=== PATIENT | female | born 1935 | race Two or more races ===

== ENCOUNTER 2018-06-04 10:02 | Outpatient (CLI) | payer MEDICARE | END 2018-06-04 23:59 | disposition home or self-care (01) | LOC: WOU 10:02 | PROVIDERS: ATTEND Specialist | DX: I87.312 Chronic venous hypertension (idiopathic) with ulcer of left lower extremity (principal); L97.328 Non-pressure chronic ulcer of left ankle with other specified severity; I10 Essential (primary) hypertension; Z88.6 Allergy status to analgesic agent; Z88.0 Allergy status to penicillin | CPT/HCPCS: 87070-TC; 87186-TC; A6209; A6402; G0463; Z7610 ==

== ENCOUNTER 2018-06-06 14:18 | Outpatient (CLI) | payer MEDICARE | END 2018-06-06 23:59 | disposition home or self-care (01) | LOC: WOU 14:18 | PROVIDERS: ATTEND Specialist | DX: L98.499 Non-pressure chronic ulcer of skin of other sites with unspecified severity (principal); I70.249 Atherosclerosis of native arteries of left leg with ulceration of unspecified site; L97.929 Non-pressure chronic ulcer of unspecified part of left lower leg with unspecified severity; I70.239 Atherosclerosis of native arteries of right leg with ulceration of unspecified site; L97.919 Non-pressure chronic ulcer of unspecified part of right lower leg with unspecified severity | CPT/HCPCS: 93925; 93970; Z7610 ==

== ENCOUNTER 2018-06-11 08:00 | Outpatient (CLI) | payer MEDICARE | END 2018-06-11 23:59 | disposition home or self-care (01) | LOC: WOU 08:00 | PROVIDERS: ATTEND Specialist | DX: I87.312 Chronic venous hypertension (idiopathic) with ulcer of left lower extremity (principal); L97.822 Non-pressure chronic ulcer of other part of left lower leg with fat layer exposed; I10 Essential (primary) hypertension; G89.29 Other chronic pain; M54.9 Dorsalgia, unspecified; Z79.899 Other long term (current) drug therapy | CPT/HCPCS: 97597; A6209; A6402; Z7610 ==

== ENCOUNTER 2018-06-18 08:13 | Outpatient (CLI) | payer MEDICARE | END 2018-06-18 23:59 | disposition home or self-care (01) | LOC: WOU 08:13 | PROVIDERS: ATTEND Specialist | DX: I87.312 Chronic venous hypertension (idiopathic) with ulcer of left lower extremity (principal); L97.822 Non-pressure chronic ulcer of other part of left lower leg with fat layer exposed; I10 Essential (primary) hypertension; Z88.6 Allergy status to analgesic agent; Z88.0 Allergy status to penicillin | CPT/HCPCS: 11042; A6209; A6402; Z7610 ==

== ENCOUNTER 2018-06-25 13:40 | Outpatient (CLI) | payer MEDICARE | END 2018-06-25 23:59 | disposition home health service (06) | LOC: WOU 13:40 | PROVIDERS: ATTEND Specialist | DX: I87.312 Chronic venous hypertension (idiopathic) with ulcer of left lower extremity (principal); L97.822 Non-pressure chronic ulcer of other part of left lower leg with fat layer exposed; Z88.6 Allergy status to analgesic agent; Z88.0 Allergy status to penicillin; I10 Essential (primary) hypertension | CPT/HCPCS: 11042; 11045; A6253; A6402; Z7610 ==

== ENCOUNTER 2018-07-02 08:30 | Outpatient (CLI) | payer MEDICARE | END 2018-07-02 23:59 | disposition home health service (06) | LOC: WOU 08:30 | PROVIDERS: ATTEND Specialist | DX: I87.312 Chronic venous hypertension (idiopathic) with ulcer of left lower extremity (principal); L97.822 Non-pressure chronic ulcer of other part of left lower leg with fat layer exposed; I70.212 Atherosclerosis of native arteries of extremities with intermittent claudication, left leg; I10 Essential (primary) hypertension | CPT/HCPCS: A6402; G0463; Z7610 ==

== ENCOUNTER 2018-07-08 12:35 | Outpatient (CLI) | payer MEDICARE | END 2018-07-08 23:59 | disposition home health service (06) | LOC: VASLAB 12:35 | PROVIDERS: ATTEND Surgery Vascular Surgery | DX: I87.2 Venous insufficiency (chronic) (peripheral) (principal); L97.821 Non-pressure chronic ulcer of other part of left lower leg limited to breakdown of skin; I70.248 Atherosclerosis of native arteries of left leg with ulceration of other part of lower leg | CPT/HCPCS: A6207; A6402; A6452; G0463; Z7610 ==

== ENCOUNTER 2018-09-03 08:35 | Outpatient (CLI) | payer MEDICARE ==
[~2018-09-03 08:35] MED LIST: KETOROLAC TROMETHAMINE 15 MG/ML VIAL ONE
== END 2018-09-03 23:59 | disposition home health service (06) ==
LOC: WOU 08:35
PROVIDERS: ATTEND Specialist
DX: I87.312 Chronic venous hypertension (idiopathic) with ulcer of left lower extremity (principal); L97.521 Non-pressure chronic ulcer of other part of left foot limited to breakdown of skin; S80.812A Abrasion, left lower leg, initial encounter; X58.XXXA Exposure to other specified factors, initial encounter; Y92.89 Other specified places as the place of occurrence of the external cause; Z88.0 Allergy status to penicillin; R23.8 Other skin changes; I10 Essential (primary) hypertension; R60.0 Localized edema; I87.2 Venous insufficiency (chronic) (peripheral)
CPT/HCPCS: 97597; A6402; Z7610; 11042; J1885

== ENCOUNTER 2018-09-10 08:24 | Outpatient (CLI) | payer MEDICARE | END 2018-09-10 23:59 | disposition home health service (06) | LOC: WOU 08:24 | PROVIDERS: ATTEND Specialist | DX: I87.312 Chronic venous hypertension (idiopathic) with ulcer of left lower extremity (principal); L97.822 Non-pressure chronic ulcer of other part of left lower leg with fat layer exposed; I10 Essential (primary) hypertension; I87.2 Venous insufficiency (chronic) (peripheral); Z88.6 Allergy status to analgesic agent; Z88.0 Allergy status to penicillin | CPT/HCPCS: 11042; A6402; Z7610 ==

== ENCOUNTER 2018-09-24 11:45 | Outpatient (CLI) | payer MEDICARE | END 2018-09-24 23:59 | disposition home health service (06) | LOC: WOU 11:45 | PROVIDERS: ATTEND Specialist | DX: I87.312 Chronic venous hypertension (idiopathic) with ulcer of left lower extremity (principal); L97.922 Non-pressure chronic ulcer of unspecified part of left lower leg with fat layer exposed; R60.0 Localized edema; I10 Essential (primary) hypertension; I87.2 Venous insufficiency (chronic) (peripheral); Z88.6 Allergy status to analgesic agent; Z88.0 Allergy status to penicillin | CPT/HCPCS: 29580-LT; A6402 ==

== ENCOUNTER 2018-10-01 11:53 | Outpatient (CLI) | payer MEDICARE | END 2018-10-01 23:59 | disposition home health service (06) | LOC: WOU 11:53 | PROVIDERS: ATTEND Specialist | DX: I87.312 Chronic venous hypertension (idiopathic) with ulcer of left lower extremity (principal); L97.322 Non-pressure chronic ulcer of left ankle with fat layer exposed; I87.2 Venous insufficiency (chronic) (peripheral); I10 Essential (primary) hypertension; Z88.0 Allergy status to penicillin | CPT/HCPCS: 11042; A6402; Z7610 ==

== ENCOUNTER 2018-10-08 09:08 | Outpatient (CLI) | payer MEDICARE | END 2018-10-08 23:59 | disposition home health service (06) | LOC: WOU 09:08 | PROVIDERS: ATTEND Specialist | DX: I87.312 Chronic venous hypertension (idiopathic) with ulcer of left lower extremity (principal); L97.322 Non-pressure chronic ulcer of left ankle with fat layer exposed; I87.2 Venous insufficiency (chronic) (peripheral); I10 Essential (primary) hypertension | CPT/HCPCS: 11042; A6402 ==

== ENCOUNTER 2018-10-15 09:18 | Outpatient (CLI) | payer MEDICARE | END 2018-10-15 23:59 | disposition home or self-care (01) | LOC: WOU 09:18 | PROVIDERS: ATTEND Specialist | DX: I87.312 Chronic venous hypertension (idiopathic) with ulcer of left lower extremity (principal); L97.322 Non-pressure chronic ulcer of left ankle with fat layer exposed; I87.2 Venous insufficiency (chronic) (peripheral); I11.0 Hypertensive heart disease with heart failure | CPT/HCPCS: A6402 ==

== ENCOUNTER 2018-10-22 09:21 | Outpatient (CLI) | payer MEDICARE | END 2018-10-22 23:59 | disposition home or self-care (01) | LOC: WOU 09:21 | PROVIDERS: ATTEND Specialist | DX: I87.312 Chronic venous hypertension (idiopathic) with ulcer of left lower extremity (principal); L97.821 Non-pressure chronic ulcer of other part of left lower leg limited to breakdown of skin; I87.2 Venous insufficiency (chronic) (peripheral); I10 Essential (primary) hypertension | CPT/HCPCS: 97597; A6402; Z7610 ==

== ENCOUNTER 2018-10-29 09:15 | Outpatient (CLI) | payer MEDICARE | END 2018-10-29 23:59 | disposition home or self-care (01) | LOC: WOU 09:15 | PROVIDERS: ATTEND Specialist | DX: I87.312 Chronic venous hypertension (idiopathic) with ulcer of left lower extremity (principal); L97.822 Non-pressure chronic ulcer of other part of left lower leg with fat layer exposed; I10 Essential (primary) hypertension; I87.2 Venous insufficiency (chronic) (peripheral) | CPT/HCPCS: 11042; A6402 ==

== ENCOUNTER 2018-11-05 10:40 | Outpatient (CLI) | payer MEDICARE | END 2018-11-05 23:59 | disposition home health service (06) | LOC: WOU 10:40 | PROVIDERS: ATTEND Specialist | DX: I87.312 Chronic venous hypertension (idiopathic) with ulcer of left lower extremity (principal); L97.822 Non-pressure chronic ulcer of other part of left lower leg with fat layer exposed; I87.2 Venous insufficiency (chronic) (peripheral); I10 Essential (primary) hypertension; Z88.6 Allergy status to analgesic agent; Z88.0 Allergy status to penicillin | CPT/HCPCS: 11042; A6402 ==

== ENCOUNTER 2018-11-12 11:20 | Outpatient (CLI) | payer MEDICARE | END 2018-11-12 23:59 | disposition home health service (06) | LOC: WOU 11:20 | PROVIDERS: ATTEND Specialist | DX: I87.312 Chronic venous hypertension (idiopathic) with ulcer of left lower extremity (principal); I10 Essential (primary) hypertension; I87.2 Venous insufficiency (chronic) (peripheral); L97.822 Non-pressure chronic ulcer of other part of left lower leg with fat layer exposed; S80.822A Blister (nonthermal), left lower leg, initial encounter; X58.XXXA Exposure to other specified factors, initial encounter; Y92.89 Other specified places as the place of occurrence of the external cause | CPT/HCPCS: 11042; A6402; A6452 ==

== ENCOUNTER 2018-11-19 10:20 | Outpatient (CLI) | payer MEDICARE | END 2018-11-19 23:59 | disposition home health service (06) | LOC: WOU 10:20 | PROVIDERS: ATTEND Specialist | DX: L97.322 Non-pressure chronic ulcer of left ankle with fat layer exposed (principal); I87.312 Chronic venous hypertension (idiopathic) with ulcer of left lower extremity; I10 Essential (primary) hypertension; I87.2 Venous insufficiency (chronic) (peripheral) | CPT/HCPCS: A6207; A6209; A6402; A6452; G0463 ==

== ENCOUNTER 2018-11-26 10:20 | Outpatient (CLI) | payer MEDICARE | END 2018-11-26 23:59 | disposition home health service (06) | LOC: WOU 10:20 | PROVIDERS: ATTEND Specialist | DX: I87.312 Chronic venous hypertension (idiopathic) with ulcer of left lower extremity (principal); L97.822 Non-pressure chronic ulcer of other part of left lower leg with fat layer exposed; I10 Essential (primary) hypertension; I87.2 Venous insufficiency (chronic) (peripheral) | CPT/HCPCS: A6402; A6452; G0463 ==

== ENCOUNTER 2018-12-03 10:08 | Outpatient (CLI) | payer MEDICARE | END 2018-12-03 23:59 | disposition home health service (06) | LOC: WOU 10:08 | PROVIDERS: ATTEND Specialist | DX: I87.312 Chronic venous hypertension (idiopathic) with ulcer of left lower extremity (principal); L97.322 Non-pressure chronic ulcer of left ankle with fat layer exposed; I10 Essential (primary) hypertension; Z88.6 Allergy status to analgesic agent; Z88.0 Allergy status to penicillin | CPT/HCPCS: 11042; A6402; A6452 ==

== ENCOUNTER 2018-12-10 09:40 | Outpatient (CLI) | payer MEDICARE | END 2018-12-10 23:59 | disposition home health service (06) | LOC: WOU 09:40 | PROVIDERS: ATTEND Specialist | DX: I87.312 Chronic venous hypertension (idiopathic) with ulcer of left lower extremity (principal); L97.322 Non-pressure chronic ulcer of left ankle with fat layer exposed; I10 Essential (primary) hypertension; I87.2 Venous insufficiency (chronic) (peripheral); G89.29 Other chronic pain; M54.9 Dorsalgia, unspecified; Z88.0 Allergy status to penicillin; Z79.899 Other long term (current) drug therapy | CPT/HCPCS: 11042; 87070; 87186 ×2; A6207; A6402; A6452 ==

== ENCOUNTER 2018-12-17 10:15 | Outpatient (CLI) | payer MEDICARE | END 2018-12-17 23:59 | disposition home health service (06) | LOC: WOU 10:15 | PROVIDERS: ATTEND Specialist | DX: I87.312 Chronic venous hypertension (idiopathic) with ulcer of left lower extremity (principal); L97.322 Non-pressure chronic ulcer of left ankle with fat layer exposed; I10 Essential (primary) hypertension; G89.29 Other chronic pain; M54.9 Dorsalgia, unspecified; Z88.6 Allergy status to analgesic agent; Z88.0 Allergy status to penicillin | CPT/HCPCS: 11042; A6402; A6452 ==

== ENCOUNTER 2018-12-24 10:00 | Outpatient (CLI) | payer MEDICARE | END 2018-12-24 23:59 | disposition home or self-care (01) | LOC: WOU 10:00 | PROVIDERS: ATTEND Specialist | DX: I87.312 Chronic venous hypertension (idiopathic) with ulcer of left lower extremity (principal); L97.322 Non-pressure chronic ulcer of left ankle with fat layer exposed; I10 Essential (primary) hypertension; I87.2 Venous insufficiency (chronic) (peripheral); Z88.6 Allergy status to analgesic agent; Z88.0 Allergy status to penicillin | CPT/HCPCS: A6207; A6402; A6452; G0463 ==

== ENCOUNTER 2018-12-31 10:10 | Outpatient (CLI) | payer MEDICARE | END 2018-12-31 23:59 | disposition home health service (06) | LOC: WOU 10:10 | PROVIDERS: ATTEND Specialist | DX: I87.312 Chronic venous hypertension (idiopathic) with ulcer of left lower extremity (principal); L97.328 Non-pressure chronic ulcer of left ankle with other specified severity; I10 Essential (primary) hypertension; S80.11XA Contusion of right lower leg, initial encounter; W19.XXXA Unspecified fall, initial encounter; Y92.89 Other specified places as the place of occurrence of the external cause | CPT/HCPCS: 97597; A6207; A6452 ==

== ENCOUNTER 2019-01-07 11:10 | Outpatient (CLI) | payer MEDICARE | END 2019-01-07 23:59 | disposition home health service (06) | LOC: WOU 11:10 | PROVIDERS: ATTEND Specialist | DX: I87.312 Chronic venous hypertension (idiopathic) with ulcer of left lower extremity (principal); L97.321 Non-pressure chronic ulcer of left ankle limited to breakdown of skin; Z88.0 Allergy status to penicillin; I10 Essential (primary) hypertension; T79.2XXD Traumatic secondary and recurrent hemorrhage and seroma, subsequent encounter; X58.XXXD Exposure to other specified factors, subsequent encounter | CPT/HCPCS: 11042; 87070; A6402; A6452; 87186-TC ==

== ENCOUNTER 2019-01-14 11:05 | Outpatient (CLI) | payer MEDICARE | END 2019-01-14 23:59 | disposition home health service (06) | LOC: WOU 11:05 | PROVIDERS: ATTEND Specialist | DX: I87.312 Chronic venous hypertension (idiopathic) with ulcer of left lower extremity (principal); L97.328 Non-pressure chronic ulcer of left ankle with other specified severity; I10 Essential (primary) hypertension; T79.2XXA Traumatic secondary and recurrent hemorrhage and seroma, initial encounter; I87.2 Venous insufficiency (chronic) (peripheral) | CPT/HCPCS: 15110; A6209; A6402; A6452 ==

== ENCOUNTER 2019-01-21 11:05 | Outpatient (CLI) | payer MEDICARE | END 2019-01-21 23:59 | disposition home health service (06) | LOC: WOU 11:05 | PROVIDERS: ATTEND Specialist | DX: I87.312 Chronic venous hypertension (idiopathic) with ulcer of left lower extremity (principal); L97.821 Non-pressure chronic ulcer of other part of left lower leg limited to breakdown of skin; T79.2XXA Traumatic secondary and recurrent hemorrhage and seroma, initial encounter; I10 Essential (primary) hypertension | CPT/HCPCS: A6402; A6452; G0463 ==

== ENCOUNTER 2019-01-28 11:00 | Outpatient (CLI) | payer MEDICARE | END 2019-01-28 23:59 | disposition home health service (06) | LOC: WOU 11:00 | PROVIDERS: ATTEND Specialist | DX: I87.312 Chronic venous hypertension (idiopathic) with ulcer of left lower extremity (principal); L97.321 Non-pressure chronic ulcer of left ankle limited to breakdown of skin; R60.0 Localized edema; T79.2XXD Traumatic secondary and recurrent hemorrhage and seroma, subsequent encounter; Z88.6 Allergy status to analgesic agent; Z88.0 Allergy status to penicillin | CPT/HCPCS: A6209; A6402; A6452; G0463 ==

== ENCOUNTER 2019-02-04 10:30 | Outpatient (CLI) | payer MEDICARE | END 2019-02-04 23:59 | disposition home health service (06) | LOC: WOU 10:30 | PROVIDERS: ATTEND Specialist | DX: I87.312 Chronic venous hypertension (idiopathic) with ulcer of left lower extremity (principal); L97.321 Non-pressure chronic ulcer of left ankle limited to breakdown of skin; I10 Essential (primary) hypertension | CPT/HCPCS: 11042; A6209; A6402; A6452 ==

== ENCOUNTER 2019-02-06 10:48 | Outpatient (CLI) | payer MEDICARE | END 2019-02-06 23:59 | disposition home or self-care (01) | LOC: WOU 10:48 | PROVIDERS: ATTEND Podiatrist Foot & Ankle Surgery | DX: L84 Corns and callosities (principal); M79.672 Pain in left foot; I87.8 Other specified disorders of veins; R60.0 Localized edema | CPT/HCPCS: A6402; G0463 ==

== ENCOUNTER 2019-02-11 11:15 | Outpatient (CLI) | payer MEDICARE | END 2019-02-11 23:59 | disposition home health service (06) | LOC: WOU 11:15 | PROVIDERS: ATTEND Specialist | DX: I87.312 Chronic venous hypertension (idiopathic) with ulcer of left lower extremity (principal); L97.322 Non-pressure chronic ulcer of left ankle with fat layer exposed; I10 Essential (primary) hypertension; Z88.6 Allergy status to analgesic agent; Z88.0 Allergy status to penicillin | CPT/HCPCS: 15271; A6402; A6452; Q4158 ==

== ENCOUNTER 2019-02-18 10:55 | Outpatient (CLI) | payer MEDICARE | END 2019-02-18 23:59 | disposition home health service (06) | LOC: WOU 10:55 | PROVIDERS: ATTEND Specialist | DX: I87.312 Chronic venous hypertension (idiopathic) with ulcer of left lower extremity (principal); L97.822 Non-pressure chronic ulcer of other part of left lower leg with fat layer exposed; I10 Essential (primary) hypertension; I87.2 Venous insufficiency (chronic) (peripheral); Z88.6 Allergy status to analgesic agent; Z88.0 Allergy status to penicillin | CPT/HCPCS: 11042; A6402; A6452 ==

== ENCOUNTER 2019-02-25 11:15 | Outpatient (CLI) | payer MEDICARE | END 2019-02-25 23:59 | disposition home health service (06) | LOC: WOU 11:15 | PROVIDERS: ATTEND Specialist | DX: I87.312 Chronic venous hypertension (idiopathic) with ulcer of left lower extremity (principal); L97.328 Non-pressure chronic ulcer of left ankle with other specified severity; I10 Essential (primary) hypertension; R60.0 Localized edema; I87.2 Venous insufficiency (chronic) (peripheral) | CPT/HCPCS: A6402; A6452; G0463 ==

== ENCOUNTER 2019-03-04 11:15 | Outpatient (CLI) | payer MEDICARE | END 2019-03-04 23:59 | disposition home health service (06) | LOC: WOU 11:15 | PROVIDERS: ATTEND Specialist | DX: I87.312 Chronic venous hypertension (idiopathic) with ulcer of left lower extremity (principal); L97.322 Non-pressure chronic ulcer of left ankle with fat layer exposed; I10 Essential (primary) hypertension; R60.0 Localized edema; I87.2 Venous insufficiency (chronic) (peripheral); Z88.0 Allergy status to penicillin | CPT/HCPCS: 11042; 87070; 87075; A6209; A6402; A6452; 87186-TC ==

== ENCOUNTER 2019-03-10 09:57 | Outpatient (CLI) | payer MEDICARE | END 2019-03-10 23:59 | disposition home health service (06) | LOC: WOU 09:57 | PROVIDERS: ATTEND Podiatrist Foot & Ankle Surgery | DX: L60.0 Ingrowing nail (principal); L84 Corns and callosities; M20.42 Other hammer toe(s) (acquired), left foot; I87.2 Venous insufficiency (chronic) (peripheral); B35.3 Tinea pedis; R60.0 Localized edema | CPT/HCPCS: G0463 ==

== ENCOUNTER 2019-03-11 11:00 | Outpatient (CLI) | payer MEDICARE | END 2019-03-11 23:59 | disposition home health service (06) | LOC: WOU 11:00 | PROVIDERS: ATTEND Specialist | DX: I87.312 Chronic venous hypertension (idiopathic) with ulcer of left lower extremity (principal); L97.822 Non-pressure chronic ulcer of other part of left lower leg with fat layer exposed; I10 Essential (primary) hypertension; R60.0 Localized edema; I87.2 Venous insufficiency (chronic) (peripheral) | CPT/HCPCS: 11042; A6209; A6402; A6452 ==

== ENCOUNTER 2019-03-18 11:15 | Outpatient (CLI) | payer MEDICARE | END 2019-03-18 23:59 | disposition home health service (06) | LOC: WOU 11:15 | PROVIDERS: ATTEND Specialist | DX: I87.312 Chronic venous hypertension (idiopathic) with ulcer of left lower extremity (principal); L97.822 Non-pressure chronic ulcer of other part of left lower leg with fat layer exposed; I10 Essential (primary) hypertension; I87.2 Venous insufficiency (chronic) (peripheral); Z88.6 Allergy status to analgesic agent; Z88.0 Allergy status to penicillin | CPT/HCPCS: 11042; A6209; A6402; A6452 ==

== ENCOUNTER 2019-03-25 11:10 | Outpatient (CLI) | payer MEDICARE | END 2019-03-25 23:59 | disposition home health service (06) | LOC: WOU 11:10 | PROVIDERS: ATTEND Specialist | DX: I87.312 Chronic venous hypertension (idiopathic) with ulcer of left lower extremity (principal); L97.322 Non-pressure chronic ulcer of left ankle with fat layer exposed; I10 Essential (primary) hypertension; I87.2 Venous insufficiency (chronic) (peripheral) | CPT/HCPCS: 11042; A6402; A6452 ==

== ENCOUNTER 2019-04-01 11:40 | Outpatient (CLI) | payer MEDICARE | END 2019-04-01 23:59 | disposition home health service (06) | LOC: WOU 11:40 | PROVIDERS: ATTEND Specialist | DX: I87.312 Chronic venous hypertension (idiopathic) with ulcer of left lower extremity (principal); L97.922 Non-pressure chronic ulcer of unspecified part of left lower leg with fat layer exposed; I10 Essential (primary) hypertension | CPT/HCPCS: 11042; A6402; A6452 ==

== ENCOUNTER 2019-04-08 11:30 | Outpatient (CLI) | payer MEDICARE | END 2019-04-08 23:59 | disposition home health service (06) | LOC: WOU 11:30 | PROVIDERS: ATTEND Specialist | DX: I87.312 Chronic venous hypertension (idiopathic) with ulcer of left lower extremity (principal); L97.822 Non-pressure chronic ulcer of other part of left lower leg with fat layer exposed; I10 Essential (primary) hypertension; I87.2 Venous insufficiency (chronic) (peripheral); Z88.6 Allergy status to analgesic agent; Z88.0 Allergy status to penicillin | CPT/HCPCS: 11042; A6209; A6402; A6452 ==

== ENCOUNTER 2019-04-15 11:20 | Outpatient (CLI) | payer MEDICARE | END 2019-04-15 23:59 | disposition home health service (06) | LOC: WOU 11:20 | PROVIDERS: ATTEND Specialist | DX: I87.312 Chronic venous hypertension (idiopathic) with ulcer of left lower extremity (principal); I10 Essential (primary) hypertension; I87.2 Venous insufficiency (chronic) (peripheral); L97.822 Non-pressure chronic ulcer of other part of left lower leg with fat layer exposed | CPT/HCPCS: 11042; A6452 ==

== ENCOUNTER 2019-04-22 11:10 | Outpatient (CLI) | payer MEDICARE | END 2019-04-22 23:59 | disposition home health service (06) | LOC: WOU 11:10 | PROVIDERS: ATTEND Specialist | DX: I87.312 Chronic venous hypertension (idiopathic) with ulcer of left lower extremity (principal); L97.322 Non-pressure chronic ulcer of left ankle with fat layer exposed; I10 Essential (primary) hypertension; I87.2 Venous insufficiency (chronic) (peripheral); Z88.0 Allergy status to penicillin | CPT/HCPCS: 11042; A6452 ==

== ENCOUNTER 2019-04-29 11:00 | Outpatient (CLI) | payer MEDICARE | END 2019-04-29 23:59 | disposition home health service (06) | LOC: WOU 11:00 | PROVIDERS: ATTEND Specialist | DX: I87.312 Chronic venous hypertension (idiopathic) with ulcer of left lower extremity (principal); L97.822 Non-pressure chronic ulcer of other part of left lower leg with fat layer exposed; I10 Essential (primary) hypertension; I87.2 Venous insufficiency (chronic) (peripheral) | CPT/HCPCS: 11042; A6209; A6452 ==

== ENCOUNTER 2019-05-05 10:30 | Outpatient (CLI) | payer MEDICARE | END 2019-05-05 23:59 | disposition home or self-care (01) | LOC: WOU 10:30 | PROVIDERS: ATTEND Podiatrist Foot & Ankle Surgery | DX: L84 Corns and callosities (principal); I87.2 Venous insufficiency (chronic) (peripheral); R60.0 Localized edema; M79.672 Pain in left foot | CPT/HCPCS: G0463 ==

== ENCOUNTER 2019-05-06 11:00 | Outpatient (CLI) | payer MEDICARE | END 2019-05-06 23:59 | disposition home health service (06) | DX: I87.312 Chronic venous hypertension (idiopathic) with ulcer of left lower extremity (principal); L97.322 Non-pressure chronic ulcer of left ankle with fat layer exposed; I10 Essential (primary) hypertension; Z88.0 Allergy status to penicillin; M17.11 Unilateral primary osteoarthritis, right knee; M85.861 Other specified disorders of bone density and structure, right lower leg | CPT/HCPCS: 11042; 73564; A6209 ==

== ENCOUNTER 2019-05-07 09:00 | Outpatient (CLI) | payer MEDICARE | END 2019-05-07 23:59 | disposition home or self-care (01) | LOC: WOU 09:00 | PROVIDERS: ATTEND Specialist | DX: M79.89 Other specified soft tissue disorders (principal); I83.893 Varicose veins of bilateral lower extremities with other complications; Z98.890 Other specified postprocedural states | CPT/HCPCS: 93970; A6209; A6452 ==

== ENCOUNTER 2019-05-12 13:30 | Outpatient (CLI) | payer MEDICARE | END 2019-05-12 23:59 | disposition home health service (06) | LOC: VASLAB 13:30 | PROVIDERS: ATTEND Surgery Vascular Surgery | DX: I87.312 Chronic venous hypertension (idiopathic) with ulcer of left lower extremity (principal); L97.822 Non-pressure chronic ulcer of other part of left lower leg with fat layer exposed; I87.2 Venous insufficiency (chronic) (peripheral); R60.0 Localized edema; I10 Essential (primary) hypertension | CPT/HCPCS: G0463 ==

== ENCOUNTER 2019-05-13 11:10 | Outpatient (CLI) | payer MEDICARE | END 2019-05-13 23:59 | disposition home or self-care (01) | LOC: WOU 11:10 | PROVIDERS: ATTEND Specialist | DX: I87.312 Chronic venous hypertension (idiopathic) with ulcer of left lower extremity (principal); L97.822 Non-pressure chronic ulcer of other part of left lower leg with fat layer exposed; I10 Essential (primary) hypertension; M17.11 Unilateral primary osteoarthritis, right knee | CPT/HCPCS: G0463 ==

== ENCOUNTER 2019-05-27 10:50 | Outpatient (CLI) | payer MEDICARE | END 2019-05-27 23:59 | disposition home health service (06) | LOC: WOU 10:50 | PROVIDERS: ATTEND Specialist | DX: I87.312 Chronic venous hypertension (idiopathic) with ulcer of left lower extremity (principal); L97.328 Non-pressure chronic ulcer of left ankle with other specified severity; I87.2 Venous insufficiency (chronic) (peripheral); R60.0 Localized edema; I10 Essential (primary) hypertension | CPT/HCPCS: A6452; G0463 ==

== ENCOUNTER 2019-06-02 11:00 | Outpatient (CLI) | payer MEDICARE | END 2019-06-02 23:59 | disposition home health service (06) | LOC: WOU 11:00 | PROVIDERS: ATTEND Podiatrist Foot & Ankle Surgery | DX: M20.40 Other hammer toe(s) (acquired), unspecified foot (principal); L84 Corns and callosities; I87.2 Venous insufficiency (chronic) (peripheral); I10 Essential (primary) hypertension; R60.0 Localized edema | CPT/HCPCS: G0463 ==

== ENCOUNTER 2019-06-04 09:06 | Outpatient (CLI) | payer MEDICARE | END 2019-06-04 23:59 | disposition home or self-care (01) | LOC: US 09:06 | PROVIDERS: ATTEND Surgery Vascular Surgery | DX: K82.8 Other specified diseases of gallbladder (principal); R14.0 Abdominal distension (gaseous); R10.2 Pelvic and perineal pain; R22.41 Localized swelling, mass and lump, right lower limb | CPT/HCPCS: 76700-TC; 76856-TC ==

== ENCOUNTER 2019-06-09 14:20 | Outpatient (CLI) | payer MEDICARE | END 2019-06-09 23:59 | disposition home health service (06) | LOC: VASLAB 14:20 | PROVIDERS: ATTEND Surgery Vascular Surgery | DX: I87.312 Chronic venous hypertension (idiopathic) with ulcer of left lower extremity (principal); L97.822 Non-pressure chronic ulcer of other part of left lower leg with fat layer exposed; I87.2 Venous insufficiency (chronic) (peripheral); R60.0 Localized edema; I10 Essential (primary) hypertension; L84 Corns and callosities | CPT/HCPCS: G0463 ==

== ENCOUNTER 2019-06-10 10:50 | Outpatient (CLI) | payer MEDICARE | END 2019-06-10 23:59 | disposition home health service (06) | LOC: WOU 10:50 | PROVIDERS: ATTEND Specialist | DX: I87.312 Chronic venous hypertension (idiopathic) with ulcer of left lower extremity (principal); L97.822 Non-pressure chronic ulcer of other part of left lower leg with fat layer exposed; I10 Essential (primary) hypertension; I87.2 Venous insufficiency (chronic) (peripheral) | CPT/HCPCS: 11042; A6452 ==

== ENCOUNTER 2019-06-17 10:55 | Outpatient (CLI) | payer MEDICARE | END 2019-06-17 23:59 | disposition home health service (06) | LOC: WOU 10:55 | PROVIDERS: ATTEND Specialist | DX: I87.312 Chronic venous hypertension (idiopathic) with ulcer of left lower extremity (principal); L97.328 Non-pressure chronic ulcer of left ankle with other specified severity; L84 Corns and callosities; I10 Essential (primary) hypertension; R60.0 Localized edema; Z88.6 Allergy status to analgesic agent; Z88.0 Allergy status to penicillin | CPT/HCPCS: A6452; G0463 ==

== ENCOUNTER 2019-07-01 10:43 | Outpatient (CLI) | payer MEDICARE | END 2019-07-01 23:59 | disposition home health service (06) | LOC: WOU 10:43 | PROVIDERS: ATTEND Specialist | DX: I87.302 Chronic venous hypertension (idiopathic) without complications of left lower extremity (principal); I10 Essential (primary) hypertension; L84 Corns and callosities | CPT/HCPCS: G0463 ==

== ENCOUNTER 2020-02-24 11:15 | Outpatient (CLI) | payer MEDICARE ==
[2020-02-24 13:35] LABS: BASOPHILS # (AUTO) 0.1 /CMM (0.0-0.2); EOSINOPHILS % (AUTO) 1.3 % (0.0-6.0); HEMATOCRIT 38 % (33-45); HEMOGLOBIN 12.6 g/dL (11.5-14.8); LYMPHOCYTES # (AUTO) 0.9 /CMM (0.8-4.8); LYMPHOCYTES % (AUTO) 12.1 % (20.0-44.0); MEAN CORPUSCULAR HGB CONC 34 g/dl (31.0-36.0); MEAN CORPUSCULAR VOLUME 93 fL (82-100); MONOCYTES # (AUTO) 0.4 /CMM (0.1-1.30); MONOCYTES % (AUTO) 5.9 % (2.0-12.0); NEUTROPHILS # (AUTO) 5.8 /CMM (1.8-8.9); NEUTROPHILS % (AUTO) 78.7 % (43.0-81.0); PLATELET COUNT (AUTO) 259 /CMM (150-450); RED BLOOD CELL COUNT(AUTO) 4.06 MIL/uL (4.0-5.2); WHITE BLOOD COUNT (AUTO) 7.4 K/uL (4.3-11.0)
[2020-02-24 13:51] LABS: ALBUMIN 3.4 g/dL (3.4-5.0); BILIRUBIN,TOTAL 0.8 mg/dL (0.2-1.0); CALCIUM, SERUM 8.9 mg/dL (8.5-10.1); CREATININE 0.8 mg/dL (0.6-1.3); TOTAL PROTEIN, SERUM 7.2 g/dL (6.4-8.2)
[2020-02-24 13:55] LABS: PREALBUMIN 20.4 MG/DL (18.0-35.7); THYROID STIMULATING HORMONE 0.661 uIU/mL (0.358-3.74)
== END 2020-02-24 23:59 | disposition home health service (06) ==
LOC: WOU 11:15
PROVIDERS: ATTEND Specialist
DX: I87.332 Chronic venous hypertension (idiopathic) with ulcer and inflammation of left lower extremity (principal); L97.822 Non-pressure chronic ulcer of other part of left lower leg with fat layer exposed; I10 Essential (primary) hypertension; Z79.02 Long term (current) use of antithrombotics/antiplatelets
CPT/HCPCS: 36415; 80053; 83036; 84134; 84443; 85025; 85652; A6209; A6452; G0463

== ENCOUNTER 2020-03-02 11:20 | Outpatient (CLI) | payer MEDICARE | END 2020-03-02 23:59 | disposition home health service (06) | LOC: WOU 11:20 | PROVIDERS: ATTEND Specialist | DX: I87.332 Chronic venous hypertension (idiopathic) with ulcer and inflammation of left lower extremity (principal); L97.822 Non-pressure chronic ulcer of other part of left lower leg with fat layer exposed; I10 Essential (primary) hypertension; Z79.02 Long term (current) use of antithrombotics/antiplatelets | CPT/HCPCS: A6209; A6452; G0463 ==

== ENCOUNTER 2020-03-09 11:20 | Outpatient (CLI) | payer MEDICARE | END 2020-03-09 23:59 | disposition home health service (06) | LOC: WOU 11:20 | PROVIDERS: ATTEND Specialist | DX: I87.332 Chronic venous hypertension (idiopathic) with ulcer and inflammation of left lower extremity (principal); L97.822 Non-pressure chronic ulcer of other part of left lower leg with fat layer exposed; I10 Essential (primary) hypertension; Z79.02 Long term (current) use of antithrombotics/antiplatelets | CPT/HCPCS: A6452; G0463; A6209 ==

== ENCOUNTER 2020-03-16 11:15 | Outpatient (CLI) | payer MEDICARE | END 2020-03-16 23:59 | disposition home health service (06) | LOC: WOU 11:15 | PROVIDERS: ATTEND Specialist | DX: I87.332 Chronic venous hypertension (idiopathic) with ulcer and inflammation of left lower extremity (principal); L97.828 Non-pressure chronic ulcer of other part of left lower leg with other specified severity; S80.822A Blister (nonthermal), left lower leg, initial encounter; X58.XXXA Exposure to other specified factors, initial encounter; Y92.89 Other specified places as the place of occurrence of the external cause; I10 Essential (primary) hypertension | CPT/HCPCS: 97597; A6209; A6452 ==

== ENCOUNTER 2020-03-23 11:20 | Outpatient (CLI) | payer MEDICARE | END 2020-03-23 23:59 | disposition home health service (06) | LOC: WOU 11:20 | PROVIDERS: ATTEND Specialist | DX: I87.332 Chronic venous hypertension (idiopathic) with ulcer and inflammation of left lower extremity (principal); L97.828 Non-pressure chronic ulcer of other part of left lower leg with other specified severity; S80.822D Blister (nonthermal), left lower leg, subsequent encounter; X58.XXXD Exposure to other specified factors, subsequent encounter; I10 Essential (primary) hypertension; Z79.02 Long term (current) use of antithrombotics/antiplatelets | CPT/HCPCS: A6209; A6452; G0463 ==

== ENCOUNTER 2020-03-29 10:50 | Outpatient (CLI) | payer MEDICARE | END 2020-03-29 23:59 | disposition home health service (06) | LOC: WOU 10:50 | PROVIDERS: ATTEND Podiatrist Foot & Ankle Surgery | DX: L60.0 Ingrowing nail (principal); L84 Corns and callosities; M79.675 Pain in left toe(s); M79.674 Pain in right toe(s); M20.42 Other hammer toe(s) (acquired), left foot; M20.41 Other hammer toe(s) (acquired), right foot; Z79.02 Long term (current) use of antithrombotics/antiplatelets | CPT/HCPCS: G0463 ==

== ENCOUNTER 2020-03-30 10:55 | Outpatient (CLI) | payer MEDICARE | END 2020-03-30 23:59 | disposition home health service (06) | LOC: WOU 10:55 | PROVIDERS: ATTEND Specialist | DX: I87.332 Chronic venous hypertension (idiopathic) with ulcer and inflammation of left lower extremity (principal); L97.828 Non-pressure chronic ulcer of other part of left lower leg with other specified severity; L84 Corns and callosities; L60.0 Ingrowing nail; M20.42 Other hammer toe(s) (acquired), left foot; M20.41 Other hammer toe(s) (acquired), right foot; I10 Essential (primary) hypertension; M79.675 Pain in left toe(s); M79.674 Pain in right toe(s); Z79.02 Long term (current) use of antithrombotics/antiplatelets | CPT/HCPCS: A6209; A6452; G0463 ==

== ENCOUNTER 2020-04-06 10:53 | Outpatient (CLI) | payer MEDICARE | END 2020-04-06 23:59 | disposition home health service (06) | LOC: WOU 10:53 | PROVIDERS: ATTEND Specialist | DX: I87.332 Chronic venous hypertension (idiopathic) with ulcer and inflammation of left lower extremity (principal); L97.828 Non-pressure chronic ulcer of other part of left lower leg with other specified severity; L84 Corns and callosities; L60.0 Ingrowing nail; M20.42 Other hammer toe(s) (acquired), left foot; M20.41 Other hammer toe(s) (acquired), right foot; M79.675 Pain in left toe(s); M79.674 Pain in right toe(s); I10 Essential (primary) hypertension; Z79.02 Long term (current) use of antithrombotics/antiplatelets | CPT/HCPCS: 11042; A6452 ==

== ENCOUNTER 2020-04-13 11:00 | Outpatient (CLI) | payer MEDICARE | END 2020-04-13 23:59 | disposition home health service (06) | LOC: WOU 11:00 | PROVIDERS: ATTEND Specialist | DX: I87.332 Chronic venous hypertension (idiopathic) with ulcer and inflammation of left lower extremity (principal); L97.822 Non-pressure chronic ulcer of other part of left lower leg with fat layer exposed; L84 Corns and callosities; M79.675 Pain in left toe(s); M79.674 Pain in right toe(s); L60.0 Ingrowing nail; M20.42 Other hammer toe(s) (acquired), left foot; M20.41 Other hammer toe(s) (acquired), right foot; I10 Essential (primary) hypertension | CPT/HCPCS: 11042; A6452 ==

== ENCOUNTER 2020-04-20 11:25 | Outpatient (CLI) | payer MEDICARE | END 2020-04-20 23:59 | disposition home health service (06) | LOC: WOU 11:25 | PROVIDERS: ATTEND Specialist | DX: I87.332 Chronic venous hypertension (idiopathic) with ulcer and inflammation of left lower extremity (principal); L97.822 Non-pressure chronic ulcer of other part of left lower leg with fat layer exposed; L84 Corns and callosities; L60.0 Ingrowing nail; M20.42 Other hammer toe(s) (acquired), left foot; M20.41 Other hammer toe(s) (acquired), right foot; M79.675 Pain in left toe(s); M79.674 Pain in right toe(s); I10 Essential (primary) hypertension | CPT/HCPCS: 11042; A6452 ==

== ENCOUNTER 2020-04-27 11:20 | Outpatient (CLI) | payer MEDICARE ==
[2020-04-27] MEDS ORDERED: CADEXOMER IODINE UD 5 GM TUBE ONE (12:20)
[2020-04-27] MEDS ORDERED: LIDOCAINE SOLN 4% 50 ML BOTTLE ONE (12:20)
[2020-04-27] MEDS ORDERED: UREA 10% -AHA 4% CREAM 57 GM TUBE ONE (12:23)
== END 2020-04-27 23:59 | disposition home health service (06) ==
LOC: WOU 11:20
PROVIDERS: ATTEND Specialist
DX: I87.332 Chronic venous hypertension (idiopathic) with ulcer and inflammation of left lower extremity (principal); L97.822 Non-pressure chronic ulcer of other part of left lower leg with fat layer exposed; Q82.0 Hereditary lymphedema; L84 Corns and callosities; M20.42 Other hammer toe(s) (acquired), left foot; M20.41 Other hammer toe(s) (acquired), right foot; L60.0 Ingrowing nail; I10 Essential (primary) hypertension; M79.675 Pain in left toe(s); M79.674 Pain in right toe(s); Z79.02 Long term (current) use of antithrombotics/antiplatelets
CPT/HCPCS: 11042; A6452

== ENCOUNTER 2020-05-04 11:25 | Outpatient (CLI) | payer MEDICARE ==
[2020-05-04] MEDS ORDERED: UREA 10% -AHA 4% CREAM 57 GM TUBE ONE (11:58)
[2020-05-04] MEDS ORDERED: CADEXOMER IODINE UD 5 GM TUBE ONE (11:58)
== END 2020-05-04 23:59 | disposition home health service (06) ==
LOC: WOU 11:25
PROVIDERS: ATTEND Specialist
DX: I87.332 Chronic venous hypertension (idiopathic) with ulcer and inflammation of left lower extremity (principal); L97.822 Non-pressure chronic ulcer of other part of left lower leg with fat layer exposed; L84 Corns and callosities; L60.0 Ingrowing nail; I10 Essential (primary) hypertension; M20.42 Other hammer toe(s) (acquired), left foot; M20.41 Other hammer toe(s) (acquired), right foot; M79.675 Pain in left toe(s); M79.674 Pain in right toe(s); Z79.02 Long term (current) use of antithrombotics/antiplatelets
CPT/HCPCS: 11042; A6452

== ENCOUNTER 2020-05-11 11:30 | Outpatient (CLI) | payer MEDICARE ==
[2020-05-11] MEDS ORDERED: LIDOCAINE SOLN 4% 50 ML BOTTLE ONE (11:40)
== END 2020-05-11 23:59 | disposition home health service (06) ==
LOC: WOU 11:30
PROVIDERS: ATTEND Specialist
DX: I87.332 Chronic venous hypertension (idiopathic) with ulcer and inflammation of left lower extremity (principal); L97.822 Non-pressure chronic ulcer of other part of left lower leg with fat layer exposed; I10 Essential (primary) hypertension; L60.0 Ingrowing nail; L84 Corns and callosities; M20.42 Other hammer toe(s) (acquired), left foot; M20.41 Other hammer toe(s) (acquired), right foot; M79.672 Pain in left foot; M79.671 Pain in right foot
CPT/HCPCS: 11042; A6452

== ENCOUNTER 2020-05-18 11:20 | Outpatient (CLI) | payer MEDICARE ==
[2020-05-18] MEDS ORDERED: UREA 10% -AHA 4% CREAM 57 GM TUBE ONE (12:21)
== END 2020-05-18 23:59 | disposition home health service (06) ==
LOC: WOU 11:20
PROVIDERS: ATTEND Specialist
DX: I87.332 Chronic venous hypertension (idiopathic) with ulcer and inflammation of left lower extremity (principal); L97.822 Non-pressure chronic ulcer of other part of left lower leg with fat layer exposed; L84 Corns and callosities; L60.0 Ingrowing nail; M79.675 Pain in left toe(s); M79.674 Pain in right toe(s); M20.42 Other hammer toe(s) (acquired), left foot; M20.41 Other hammer toe(s) (acquired), right foot
CPT/HCPCS: 11042; A6452

== ENCOUNTER 2020-05-25 11:30 | Outpatient (CLI) | payer MEDICARE ==
[2020-05-25] MEDS ORDERED: LIDOCAINE SOLN 4% 50 ML BOTTLE ONE (11:32)
[2020-05-25] MEDS ORDERED: UREA 10% -AHA 4% CREAM 57 GM TUBE ONE (12:08)
== END 2020-05-25 23:59 | disposition home health service (06) ==
LOC: WOU 11:30
PROVIDERS: ATTEND Specialist
DX: I87.332 Chronic venous hypertension (idiopathic) with ulcer and inflammation of left lower extremity (principal); L97.822 Non-pressure chronic ulcer of other part of left lower leg with fat layer exposed; L84 Corns and callosities; L60.0 Ingrowing nail; M20.42 Other hammer toe(s) (acquired), left foot; M20.41 Other hammer toe(s) (acquired), right foot; I10 Essential (primary) hypertension; M79.675 Pain in left toe(s); M79.674 Pain in right toe(s); Z79.02 Long term (current) use of antithrombotics/antiplatelets
CPT/HCPCS: 11042; A6452

== ENCOUNTER 2020-06-01 11:20 | Outpatient (CLI) | payer MEDICARE | END 2020-06-01 23:59 | disposition home health service (06) | LOC: WOU 11:20 | PROVIDERS: ATTEND Specialist | DX: I87.322 Chronic venous hypertension (idiopathic) with inflammation of left lower extremity (principal); L97.822 Non-pressure chronic ulcer of other part of left lower leg with fat layer exposed; L60.0 Ingrowing nail; L84 Corns and callosities; M20.42 Other hammer toe(s) (acquired), left foot; M20.41 Other hammer toe(s) (acquired), right foot; I10 Essential (primary) hypertension; M79.675 Pain in left toe(s); M79.674 Pain in right toe(s); Z79.02 Long term (current) use of antithrombotics/antiplatelets | CPT/HCPCS: 11042; A6452 ==

== ENCOUNTER 2020-06-08 11:20 | Outpatient (CLI) | payer MEDICARE ==
[2020-06-08] MEDS ORDERED: LIDOCAINE SOLN 4% 50 ML BOTTLE ONE (11:30)
[2020-06-08] MEDS ORDERED: UREA 10% -AHA 4% CREAM 57 GM TUBE ONE (12:04)
== END 2020-06-08 23:59 | disposition home health service (06) ==
LOC: WOU 11:20
PROVIDERS: ATTEND Specialist
DX: I87.332 Chronic venous hypertension (idiopathic) with ulcer and inflammation of left lower extremity (principal); L97.822 Non-pressure chronic ulcer of other part of left lower leg with fat layer exposed; L84 Corns and callosities; I10 Essential (primary) hypertension; L60.0 Ingrowing nail; M20.42 Other hammer toe(s) (acquired), left foot; M20.41 Other hammer toe(s) (acquired), right foot; M79.675 Pain in left toe(s); M79.674 Pain in right toe(s); Z79.02 Long term (current) use of antithrombotics/antiplatelets
CPT/HCPCS: A6452; G0463

== ENCOUNTER 2020-06-15 11:15 | Outpatient (CLI) | payer MEDICARE ==
[2020-06-15] MEDS ORDERED: LIDOCAINE SOLN 4% 50 ML BOTTLE ONE (11:25)
[2020-06-15] MEDS ORDERED: Z GUARD REMEDY 2 OZ OINT TP ONE (11:46)
[2020-06-15] MEDS ORDERED: CADEXOMER IODINE UD 5 GM TUBE ONE (11:48)
== END 2020-06-15 23:59 | disposition home health service (06) ==
LOC: WOU 11:15
PROVIDERS: ATTEND Specialist
DX: I87.332 Chronic venous hypertension (idiopathic) with ulcer and inflammation of left lower extremity (principal); L97.822 Non-pressure chronic ulcer of other part of left lower leg with fat layer exposed; L84 Corns and callosities; L60.0 Ingrowing nail; M79.675 Pain in left toe(s); M79.674 Pain in right toe(s); M20.42 Other hammer toe(s) (acquired), left foot; M20.41 Other hammer toe(s) (acquired), right foot; I10 Essential (primary) hypertension; Z79.02 Long term (current) use of antithrombotics/antiplatelets
CPT/HCPCS: 11042; 82962; 87070; 87075; A6452; 87186-TC

== ENCOUNTER 2020-06-22 11:00 | Outpatient (CLI) | payer MEDICARE ==
[2020-06-22] MEDS ORDERED: LIDOCAINE SOLN 4% 50 ML BOTTLE ONE (11:12)
[2020-06-22] MEDS ORDERED: CADEXOMER IODINE UD 5 GM TUBE ONE (11:50)
== END 2020-06-22 23:59 | disposition home health service (06) ==
LOC: WOU 11:00
PROVIDERS: ATTEND Specialist
DX: I87.332 Chronic venous hypertension (idiopathic) with ulcer and inflammation of left lower extremity (principal); L97.822 Non-pressure chronic ulcer of other part of left lower leg with fat layer exposed; L60.0 Ingrowing nail; L84 Corns and callosities; I10 Essential (primary) hypertension; M20.42 Other hammer toe(s) (acquired), left foot; M20.41 Other hammer toe(s) (acquired), right foot; M79.675 Pain in left toe(s); M79.674 Pain in right toe(s); Z79.02 Long term (current) use of antithrombotics/antiplatelets
CPT/HCPCS: 11042; A6452

== ENCOUNTER 2020-06-29 11:00 | Outpatient (CLI) | payer MEDICARE, MEDICAID | END 2020-06-29 23:59 | disposition home health service (06) | LOC: WOU 11:00 | PROVIDERS: ATTEND Specialist | DX: I87.332 Chronic venous hypertension (idiopathic) with ulcer and inflammation of left lower extremity (principal); L97.822 Non-pressure chronic ulcer of other part of left lower leg with fat layer exposed; L84 Corns and callosities; I10 Essential (primary) hypertension; L60.0 Ingrowing nail; M20.42 Other hammer toe(s) (acquired), left foot; M20.41 Other hammer toe(s) (acquired), right foot; M79.675 Pain in left toe(s); M79.674 Pain in right toe(s); Z79.02 Long term (current) use of antithrombotics/antiplatelets | CPT/HCPCS: 11042; A6452 ==

== ENCOUNTER 2020-07-06 11:10 | Outpatient (CLI) | payer MEDICARE, MEDICAID | END 2020-07-06 23:59 | disposition home health service (06) | LOC: WOU 11:10 | PROVIDERS: ATTEND Specialist | DX: I87.332 Chronic venous hypertension (idiopathic) with ulcer and inflammation of left lower extremity (principal); L97.822 Non-pressure chronic ulcer of other part of left lower leg with fat layer exposed; M20.42 Other hammer toe(s) (acquired), left foot; M20.41 Other hammer toe(s) (acquired), right foot; L60.0 Ingrowing nail; L84 Corns and callosities; M79.675 Pain in left toe(s); M79.674 Pain in right toe(s); Z79.02 Long term (current) use of antithrombotics/antiplatelets | CPT/HCPCS: 11042; A6452 ==

== ENCOUNTER 2020-07-13 11:08 | Outpatient (CLI) | payer MEDICARE, MEDICAID ==
[2020-07-13] MEDS ORDERED: HYDROCORTISONE 1% CREAM 28.35 GM TUBE TP ONE (11:33)
[2020-07-13] MEDS ORDERED: CLOTRIMAZOLE 1% 15 GM TUBE TP ONE (11:33)
== END 2020-07-13 23:59 | disposition home health service (06) ==
LOC: WOU 11:08
PROVIDERS: ATTEND Specialist
DX: I87.332 Chronic venous hypertension (idiopathic) with ulcer and inflammation of left lower extremity (principal); L97.822 Non-pressure chronic ulcer of other part of left lower leg with fat layer exposed; L84 Corns and callosities; L60.0 Ingrowing nail; I10 Essential (primary) hypertension; M20.42 Other hammer toe(s) (acquired), left foot; M20.41 Other hammer toe(s) (acquired), right foot; M79.675 Pain in left toe(s); M79.674 Pain in right toe(s); Z79.02 Long term (current) use of antithrombotics/antiplatelets
CPT/HCPCS: A6452; G0463

== ENCOUNTER 2020-07-20 11:05 | Outpatient (CLI) | payer MEDICARE, MEDICAID ==
[2020-07-20] MEDS ORDERED: CLOTRIMAZOLE 1% 15 GM TUBE TP ONE (12:15)
[2020-07-20] MEDS ORDERED: HYDROCORTISONE 1% CREAM 28.35 GM TUBE TP ONE (12:16)
[2020-07-20] MEDS ORDERED: UREA 10% -AHA 4% CREAM 57 GM TUBE ONE (12:16)
== END 2020-07-20 23:59 | disposition home health service (06) ==
LOC: WOU 11:05
PROVIDERS: ATTEND Specialist
DX: I87.332 Chronic venous hypertension (idiopathic) with ulcer and inflammation of left lower extremity (principal); L97.822 Non-pressure chronic ulcer of other part of left lower leg with fat layer exposed; L84 Corns and callosities; L60.0 Ingrowing nail; I10 Essential (primary) hypertension; M79.675 Pain in left toe(s); M79.674 Pain in right toe(s); M20.42 Other hammer toe(s) (acquired), left foot; M20.41 Other hammer toe(s) (acquired), right foot; Z79.02 Long term (current) use of antithrombotics/antiplatelets
CPT/HCPCS: 11042; A6452

== ENCOUNTER 2020-07-27 10:55 | Outpatient (CLI) | payer MEDICARE, OTHER | END 2020-07-27 23:59 | disposition home health service (06) | LOC: WOU 10:55 | PROVIDERS: ATTEND Specialist | DX: I87.332 Chronic venous hypertension (idiopathic) with ulcer and inflammation of left lower extremity (principal); L97.822 Non-pressure chronic ulcer of other part of left lower leg with fat layer exposed; I10 Essential (primary) hypertension; L84 Corns and callosities; L60.0 Ingrowing nail; M20.42 Other hammer toe(s) (acquired), left foot; M20.41 Other hammer toe(s) (acquired), right foot; M79.675 Pain in left toe(s); M79.674 Pain in right toe(s); Z79.02 Long term (current) use of antithrombotics/antiplatelets | CPT/HCPCS: 11042; A6452 ==

== ENCOUNTER 2020-08-03 11:08 | Outpatient (CLI) | payer MEDICARE, OTHER | END 2020-08-03 23:59 | disposition home health service (06) | LOC: WOU 11:08 | PROVIDERS: ATTEND Specialist | DX: I87.332 Chronic venous hypertension (idiopathic) with ulcer and inflammation of left lower extremity (principal); L97.822 Non-pressure chronic ulcer of other part of left lower leg with fat layer exposed; L60.0 Ingrowing nail; L84 Corns and callosities; M20.42 Other hammer toe(s) (acquired), left foot; M20.41 Other hammer toe(s) (acquired), right foot; I10 Essential (primary) hypertension; M79.675 Pain in left toe(s); M79.674 Pain in right toe(s); Z79.02 Long term (current) use of antithrombotics/antiplatelets | CPT/HCPCS: 11042; A6452 ==

== ENCOUNTER 2020-08-10 10:55 | Outpatient (CLI) | payer MEDICARE, OTHER ==
[2020-08-10] MEDS ORDERED: UREA 10% -AHA 4% CREAM 57 GM TUBE ONE (11:27)
== END 2020-08-10 23:59 | disposition home health service (06) ==
LOC: WOU 10:55
PROVIDERS: ATTEND Specialist
DX: I87.332 Chronic venous hypertension (idiopathic) with ulcer and inflammation of left lower extremity (principal); L97.822 Non-pressure chronic ulcer of other part of left lower leg with fat layer exposed; L84 Corns and callosities; I10 Essential (primary) hypertension; L60.0 Ingrowing nail; M79.675 Pain in left toe(s); M79.674 Pain in right toe(s); M20.42 Other hammer toe(s) (acquired), left foot; M20.41 Other hammer toe(s) (acquired), right foot; Z79.02 Long term (current) use of antithrombotics/antiplatelets
CPT/HCPCS: 11042; A6452

== ENCOUNTER 2020-08-31 10:50 | Outpatient (CLI) | payer MEDICARE, OTHER ==
[2020-08-31] MEDS ORDERED: LIDOCAINE SOLN 4% 50 ML BOTTLE ONE (11:13)
[2020-08-31] MEDS ORDERED: HYDROCORTISONE 1% CREAM 28.35 GM TUBE TP ONE (11:23)
[2020-08-31] MEDS ORDERED: UREA 10% -AHA 4% CREAM 57 GM TUBE ONE (11:23)
[2020-08-31] MEDS ORDERED: CADEXOMER IODINE UD 5 GM TUBE ONE (11:27)
== END 2020-08-31 23:59 | disposition home health service (06) ==
LOC: WOU 10:50
PROVIDERS: ATTEND Specialist
DX: I87.332 Chronic venous hypertension (idiopathic) with ulcer and inflammation of left lower extremity (principal); L97.822 Non-pressure chronic ulcer of other part of left lower leg with fat layer exposed; L84 Corns and callosities; L60.0 Ingrowing nail; M20.42 Other hammer toe(s) (acquired), left foot; M20.41 Other hammer toe(s) (acquired), right foot; I10 Essential (primary) hypertension; M79.675 Pain in left toe(s); M79.674 Pain in right toe(s); Z79.02 Long term (current) use of antithrombotics/antiplatelets
CPT/HCPCS: 11042; A6452

== ENCOUNTER 2020-11-02 10:10 | Outpatient (CLI) | payer MEDICARE, OTHER ==
[2020-11-02] MEDS ORDERED: LIDOCAINE SOLN 4% 50 ML BOTTLE ONE (10:32)
[2020-11-02] MEDS ORDERED: UREA 10% -AHA 4% CREAM 57 GM TUBE ONE (11:17)
[2020-11-02 11:23] LABS: BASOPHILS % (AUTO) 0.3 % (0.0-2.0); EOSINOPHILS % (AUTO) 1.2 % (0.0-6.0); HEMATOCRIT 38 % (33-45); HEMOGLOBIN 12.2 g/dL (11.5-14.8); LYMPHOCYTES # (AUTO) 1.1 /CMM (0.8-4.8); LYMPHOCYTES % (AUTO) 15.8 % (20.0-44.0); MEAN CORPUSCULAR HGB CONC 33 g/dl (31.0-36.0); MEAN CORPUSCULAR VOLUME 91 fL (82-100); MONOCYTES # (AUTO) 0.4 /CMM (0.1-1.30); NEUTROPHILS # (AUTO) 5.5 /CMM (1.8-8.9); NEUTROPHILS % (AUTO) 76.7 % (43.0-81.0); PLATELET COUNT (AUTO) 255 /CMM (150-450); RED BLOOD CELL COUNT(AUTO) 4.13 MIL/uL (4.0-5.2); WHITE BLOOD COUNT (AUTO) 7.2 K/uL (4.3-11.0)
[2020-11-02 12:09] LABS: ALBUMIN 3.4 g/dL (3.4-5.0); BILIRUBIN,TOTAL 0.7 mg/dL (0.2-1.0); CALCIUM, SERUM 9.3 mg/dL (8.5-10.1); CREATININE 0.8 mg/dL (0.6-1.3); POTASSIUM 4.4 mmol/L (3.5-5.1); TOTAL PROTEIN, SERUM 7.6 g/dL (6.4-8.2)
[2020-11-02 12:16] LABS: PREALBUMIN 19.7 MG/DL (18.0-35.7); THYROID STIMULATING HORMONE 0.289 uIU/mL (0.358-3.74)
== END 2020-11-02 23:59 | disposition home or self-care (01) ==
LOC: WOU 10:10
PROVIDERS: ATTEND Specialist
DX: I87.2 Venous insufficiency (chronic) (peripheral) (principal); L97.822 Non-pressure chronic ulcer of other part of left lower leg with fat layer exposed; Z79.02 Long term (current) use of antithrombotics/antiplatelets
CPT/HCPCS: 11042; 36415; 80053; 83036; 84134; 84443; 85025; A6197 ×2; A6452

== ENCOUNTER 2020-11-30 11:46 | Outpatient (CLI) | payer MEDICARE, OTHER ==
[2020-11-30] MEDS ORDERED: LIDOCAINE SOLN 4% 50 ML BOTTLE ONE (12:58)
[2020-11-30] MEDS ORDERED: UREA 10% -AHA 4% CREAM 57 GM TUBE ONE (13:30)
== END 2020-11-30 23:59 | disposition home or self-care (01) ==
LOC: WOU 11:46
PROVIDERS: ATTEND Specialist
DX: I87.2 Venous insufficiency (chronic) (peripheral) (principal); L97.822 Non-pressure chronic ulcer of other part of left lower leg with fat layer exposed; E07.89 Other specified disorders of thyroid; I10 Essential (primary) hypertension; Z79.02 Long term (current) use of antithrombotics/antiplatelets
CPT/HCPCS: 11042; A6452

== ENCOUNTER 2020-12-07 10:15 | Outpatient (CLI) | payer MEDICARE, OTHER ==
[~2020-12-07 10:15] MED LIST changes: -KETOROLAC TROMETHAMINE 15 MG/ML VIAL ONE; +LIDOCAINE SOLN 4% 50 ML BOTTLE ONE
[2020-12-07] MEDS ORDERED: Z GUARD REMEDY 2 OZ OINT TP ONE (10:45)
[2020-12-07] MEDS ORDERED: SILVER SULFADIAZINE CREAM 25 GM TUBE ONE (10:45)
== END 2020-12-07 23:59 | disposition home or self-care (01) ==
LOC: WOU 10:15
PROVIDERS: ATTEND Specialist
DX: I87.2 Venous insufficiency (chronic) (peripheral) (principal); L97.822 Non-pressure chronic ulcer of other part of left lower leg with fat layer exposed; E07.89 Other specified disorders of thyroid; Z79.02 Long term (current) use of antithrombotics/antiplatelets
CPT/HCPCS: 11042; A6452

== ENCOUNTER 2020-12-14 10:33 | Outpatient (CLI) | payer MEDICARE, OTHER ==
[2020-12-14] MEDS ORDERED: LIDOCAINE SOLN 4% 50 ML BOTTLE ONE (10:41)
[2020-12-14] MEDS ORDERED: SILVER SULFADIAZINE CREAM 25 GM TUBE ONE (11:10)
[2020-12-14] MEDS ORDERED: Z GUARD REMEDY 2 OZ OINT TP ONE (11:10)
[2020-12-14] MEDS ORDERED: CLOTRIMAZOLE 1% 15 GM TUBE TP ONE (11:16)
== END 2020-12-14 23:59 | disposition home or self-care (01) ==
LOC: WOU 10:33
PROVIDERS: ATTEND Specialist
DX: I87.332 Chronic venous hypertension (idiopathic) with ulcer and inflammation of left lower extremity (principal); L97.822 Non-pressure chronic ulcer of other part of left lower leg with fat layer exposed; I87.2 Venous insufficiency (chronic) (peripheral); E07.89 Other specified disorders of thyroid; I10 Essential (primary) hypertension
CPT/HCPCS: 87070; 87075; 87077; 87186; A6452; G0463

== ENCOUNTER 2020-12-21 10:20 | Outpatient (CLI) | payer MEDICARE, OTHER ==
[2020-12-21] MEDS ORDERED: HYDROCORTISONE 1% CREAM 28.35 GM TUBE TP ONE (10:49)
[2020-12-21] MEDS ORDERED: CLOTRIMAZOLE 1% 15 GM TUBE TP ONE (10:49)
[2020-12-21] MEDS ORDERED: SILVER SULFADIAZINE CREAM 25 GM TUBE ONE (10:49)
== END 2020-12-21 23:59 | disposition home or self-care (01) ==
LOC: WOU 10:20
PROVIDERS: ATTEND Specialist
DX: I87.2 Venous insufficiency (chronic) (peripheral) (principal); L97.822 Non-pressure chronic ulcer of other part of left lower leg with fat layer exposed; E07.89 Other specified disorders of thyroid; I10 Essential (primary) hypertension; Z79.02 Long term (current) use of antithrombotics/antiplatelets
CPT/HCPCS: 11042; A6452 ×2

== ENCOUNTER 2020-12-28 10:20 | Outpatient (CLI) | payer MEDICARE, OTHER ==
[2020-12-28] MEDS ORDERED: LIDOCAINE SOLN 4% 50 ML BOTTLE ONE (10:41)
[2020-12-28] MEDS ORDERED: CLOTRIMAZOLE 1% 15 GM TUBE TP ONE (11:11)
[2020-12-29] MEDS ORDERED: ACETAMINOPHEN ES 500 MG TABLET ONE (14:36)
== END 2020-12-28 23:59 | disposition home or self-care (01) ==
LOC: WOU 10:20
PROVIDERS: ATTEND Specialist
DX: I87.312 Chronic venous hypertension (idiopathic) with ulcer of left lower extremity (principal); I87.2 Venous insufficiency (chronic) (peripheral); L97.822 Non-pressure chronic ulcer of other part of left lower leg with fat layer exposed; E07.89 Other specified disorders of thyroid; I10 Essential (primary) hypertension; Z79.02 Long term (current) use of antithrombotics/antiplatelets
CPT/HCPCS: 11042; A6452

== ENCOUNTER 2021-01-04 10:15 | Outpatient (CLI) | payer MEDICARE, OTHER ==
[2021-01-04] MEDS ORDERED: LIDOCAINE SOLN 4% 50 ML BOTTLE ONE (10:29)
[2021-01-04] MEDS ORDERED: HYDROCORTISONE 1% CREAM 28.35 GM TUBE TP ONE (10:50)
[2021-01-04] MEDS ORDERED: CLOTRIMAZOLE 1% 15 GM TUBE TP ONE (10:50)
== END 2021-01-04 23:59 | disposition home or self-care (01) ==
LOC: WOU 10:15
PROVIDERS: ATTEND Specialist
DX: I87.312 Chronic venous hypertension (idiopathic) with ulcer of left lower extremity (principal); L97.822 Non-pressure chronic ulcer of other part of left lower leg with fat layer exposed; I87.2 Venous insufficiency (chronic) (peripheral); E07.89 Other specified disorders of thyroid; R21 Rash and other nonspecific skin eruption; Z79.02 Long term (current) use of antithrombotics/antiplatelets
CPT/HCPCS: 11042; A6452

== ENCOUNTER 2021-01-11 10:15 | Outpatient (CLI) | payer MEDICARE, OTHER | END 2021-01-11 23:59 | disposition home or self-care (01) | LOC: WOU 10:15 | PROVIDERS: ATTEND Specialist | DX: I87.312 Chronic venous hypertension (idiopathic) with ulcer of left lower extremity (principal); L97.822 Non-pressure chronic ulcer of other part of left lower leg with fat layer exposed; I87.2 Venous insufficiency (chronic) (peripheral); E07.89 Other specified disorders of thyroid; I10 Essential (primary) hypertension; Z79.02 Long term (current) use of antithrombotics/antiplatelets | CPT/HCPCS: 11042; A6452 ==

== ENCOUNTER 2021-01-18 10:20 | Outpatient (CLI) | payer MEDICARE, OTHER ==
[2021-01-18] MEDS ORDERED: TRIAMCINOLONE ACETONIDE 0.1% CR 15 GM TUBE TP ONE (10:45)
== END 2021-01-18 23:59 | disposition home or self-care (01) ==
LOC: WOU 10:20
PROVIDERS: ATTEND Specialist
DX: I87.312 Chronic venous hypertension (idiopathic) with ulcer of left lower extremity (principal); L97.822 Non-pressure chronic ulcer of other part of left lower leg with fat layer exposed; I87.2 Venous insufficiency (chronic) (peripheral); Z79.02 Long term (current) use of antithrombotics/antiplatelets; E07.89 Other specified disorders of thyroid
CPT/HCPCS: 29581; A6452

== ENCOUNTER 2021-02-01 10:15 | Outpatient (CLI) | payer MEDICARE, OTHER | END 2021-02-01 23:59 | disposition home or self-care (01) | LOC: WOU 10:15 | PROVIDERS: ATTEND Specialist | DX: I87.312 Chronic venous hypertension (idiopathic) with ulcer of left lower extremity (principal); L97.822 Non-pressure chronic ulcer of other part of left lower leg with fat layer exposed; I87.2 Venous insufficiency (chronic) (peripheral); E07.89 Other specified disorders of thyroid; Z79.02 Long term (current) use of antithrombotics/antiplatelets | CPT/HCPCS: A6209; A6452; G0463 ==

== ENCOUNTER 2021-02-08 10:30 | Outpatient (CLI) | payer MEDICARE, OTHER | END 2021-02-08 23:59 | disposition home or self-care (01) | LOC: WOU 10:30 | PROVIDERS: ATTEND Specialist | DX: I87.312 Chronic venous hypertension (idiopathic) with ulcer of left lower extremity (principal); L97.828 Non-pressure chronic ulcer of other part of left lower leg with other specified severity; I87.2 Venous insufficiency (chronic) (peripheral); E07.89 Other specified disorders of thyroid; Z79.02 Long term (current) use of antithrombotics/antiplatelets | CPT/HCPCS: A6209; A6452; G0463 ==

== ENCOUNTER 2021-02-15 10:55 | Outpatient (CLI) | payer MEDICARE, OTHER ==
[2021-02-15] MEDS ORDERED: LIDOCAINE SOLN 4% 50 ML BOTTLE ONE (10:57)
[2021-02-15] MEDS ORDERED: UREA 10% -AHA 4% CREAM 57 GM TUBE ONE (11:18)
== END 2021-02-15 23:59 | disposition home or self-care (01) ==
LOC: WOU 10:55
PROVIDERS: ATTEND Specialist
DX: I87.312 Chronic venous hypertension (idiopathic) with ulcer of left lower extremity (principal); L97.828 Non-pressure chronic ulcer of other part of left lower leg with other specified severity; I87.2 Venous insufficiency (chronic) (peripheral); E07.89 Other specified disorders of thyroid; Z79.02 Long term (current) use of antithrombotics/antiplatelets
CPT/HCPCS: A6209; A6452; G0463

== ENCOUNTER → 2021-02-22 | Outpatient (CLI) | payer MEDICARE, OTHER ==
[~2021-02-22] MED LIST changes: +TRIAMCINOLONE ACETONIDE 0.1% CR 15 GM TUBE TP ONE
== END | disposition home or self-care (01) ==
LOC: WOU 10:35
PROVIDERS: ATTEND Specialist
DX: I87.312 Chronic venous hypertension (idiopathic) with ulcer of left lower extremity (principal); L97.822 Non-pressure chronic ulcer of other part of left lower leg with fat layer exposed; I87.2 Venous insufficiency (chronic) (peripheral); L23.89 Allergic contact dermatitis due to other agents; E07.89 Other specified disorders of thyroid; Z79.02 Long term (current) use of antithrombotics/antiplatelets
CPT/HCPCS: A6452; G0463

== ENCOUNTER → 2021-03-01 | Outpatient (CLI) | payer MEDICARE, OTHER ==
[~2021-03-01] MED LIST changes: -LIDOCAINE SOLN 4% 50 ML BOTTLE ONE
== END | disposition home or self-care (01) ==
LOC: WOU 10:30
PROVIDERS: ATTEND Specialist
DX: I87.312 Chronic venous hypertension (idiopathic) with ulcer of left lower extremity (principal); L97.822 Non-pressure chronic ulcer of other part of left lower leg with fat layer exposed; I87.2 Venous insufficiency (chronic) (peripheral); E07.89 Other specified disorders of thyroid; I10 Essential (primary) hypertension; Z79.02 Long term (current) use of antithrombotics/antiplatelets
CPT/HCPCS: A6452; G0463

== ENCOUNTER 2021-03-08 10:48 | Outpatient (CLI) | payer MEDICARE, OTHER ==
[2021-03-08] MEDS ORDERED: LIDOCAINE SOLN 4% 50 ML BOTTLE ONE (11:16)
== END 2021-03-08 23:59 | disposition home or self-care (01) ==
LOC: WOU 10:48
PROVIDERS: ATTEND Specialist
DX: I87.312 Chronic venous hypertension (idiopathic) with ulcer of left lower extremity (principal); L97.828 Non-pressure chronic ulcer of other part of left lower leg with other specified severity; I87.2 Venous insufficiency (chronic) (peripheral); E07.89 Other specified disorders of thyroid; I10 Essential (primary) hypertension; Z79.02 Long term (current) use of antithrombotics/antiplatelets
CPT/HCPCS: A6452; G0463

== ENCOUNTER → 2021-03-15 | Outpatient (CLI) | payer MEDICARE, OTHER ==
[~2021-03-15] MED LIST changes: -TRIAMCINOLONE ACETONIDE 0.1% CR 15 GM TUBE TP ONE; +UREA 10% -AHA 4% CREAM 57 GM TUBE ONE
== END | disposition home or self-care (01) ==
LOC: WOU 10:35
PROVIDERS: ATTEND Specialist
DX: I87.312 Chronic venous hypertension (idiopathic) with ulcer of left lower extremity (principal); L97.822 Non-pressure chronic ulcer of other part of left lower leg with fat layer exposed; I87.2 Venous insufficiency (chronic) (peripheral); E07.89 Other specified disorders of thyroid; I10 Essential (primary) hypertension; Z79.02 Long term (current) use of antithrombotics/antiplatelets
CPT/HCPCS: 15271; A6452; Q4186

== ENCOUNTER 2021-03-22 10:22 | Outpatient (CLI) | payer MEDICARE, OTHER | END 2021-03-22 23:59 | disposition home or self-care (01) | LOC: WOU 10:22 | PROVIDERS: ATTEND Specialist | DX: I87.312 Chronic venous hypertension (idiopathic) with ulcer of left lower extremity (principal); L97.822 Non-pressure chronic ulcer of other part of left lower leg with fat layer exposed; I87.2 Venous insufficiency (chronic) (peripheral); E07.89 Other specified disorders of thyroid; Z79.02 Long term (current) use of antithrombotics/antiplatelets | CPT/HCPCS: 15271; A6452; Q4186 ==

== ENCOUNTER 2021-03-29 10:40 | Outpatient (CLI) | payer MEDICARE, OTHER ==
[2021-03-29] MEDS ORDERED: Z GUARD REMEDY 2 OZ OINT TP ONE (11:25)
== END 2021-03-29 23:59 | disposition home or self-care (01) ==
LOC: WOU 10:40
PROVIDERS: ATTEND Specialist
DX: I87.312 Chronic venous hypertension (idiopathic) with ulcer of left lower extremity (principal); L97.822 Non-pressure chronic ulcer of other part of left lower leg with fat layer exposed; I87.2 Venous insufficiency (chronic) (peripheral); E07.89 Other specified disorders of thyroid; Z79.02 Long term (current) use of antithrombotics/antiplatelets
CPT/HCPCS: 11042; A6452

== ENCOUNTER 2021-04-05 10:30 | Outpatient (CLI) | payer MEDICARE, OTHER ==
[2021-04-05] MEDS ORDERED: LIDOCAINE SOLN 4% 50 ML BOTTLE ONE (11:19)
[2021-04-05] MEDS ORDERED: Z GUARD REMEDY 2 OZ OINT TP ONE (11:19)
[2021-04-05] MEDS ORDERED: LIDOCAINE 2% JEL 5 ML TUBE ONE (11:19)
== END 2021-04-05 23:59 | disposition home or self-care (01) ==
LOC: WOU 10:30
PROVIDERS: ATTEND Podiatrist Foot & Ankle Surgery
DX: I87.312 Chronic venous hypertension (idiopathic) with ulcer of left lower extremity (principal); L97.828 Non-pressure chronic ulcer of other part of left lower leg with other specified severity; I87.2 Venous insufficiency (chronic) (peripheral); E07.89 Other specified disorders of thyroid; Z79.02 Long term (current) use of antithrombotics/antiplatelets
CPT/HCPCS: 97597; A6452

== ENCOUNTER 2021-04-19 10:36 | Outpatient (CLI) | payer MEDICARE, OTHER ==
[2021-04-19] MEDS ORDERED: LIDOCAINE SOLN 4% 50 ML BOTTLE ONE (10:53)
== END 2021-04-19 23:59 | disposition home or self-care (01) ==
LOC: WOU 10:36
PROVIDERS: ATTEND Specialist
DX: I87.312 Chronic venous hypertension (idiopathic) with ulcer of left lower extremity (principal); L97.822 Non-pressure chronic ulcer of other part of left lower leg with fat layer exposed; I87.2 Venous insufficiency (chronic) (peripheral); E07.89 Other specified disorders of thyroid
CPT/HCPCS: 11042; A6209; A6452

== ENCOUNTER 2021-04-26 10:30 | Outpatient (CLI) | payer MEDICARE, OTHER ==
[2021-04-26] MEDS ORDERED: HYDROCORTISONE 1% CREAM 28.35 GM TUBE TP ONE (11:09)
== END 2021-04-26 23:59 | disposition home or self-care (01) ==
LOC: WOU 10:30
PROVIDERS: ATTEND Specialist
DX: I87.312 Chronic venous hypertension (idiopathic) with ulcer of left lower extremity (principal); L97.822 Non-pressure chronic ulcer of other part of left lower leg with fat layer exposed; I87.2 Venous insufficiency (chronic) (peripheral); E07.89 Other specified disorders of thyroid; Z79.02 Long term (current) use of antithrombotics/antiplatelets
CPT/HCPCS: 11042; A6209; A6452

== ENCOUNTER 2021-05-03 10:30 | Outpatient (CLI) | payer MEDICARE, OTHER | END 2021-05-03 23:59 | disposition home or self-care (01) | LOC: WOU 10:30 | PROVIDERS: ATTEND Specialist | DX: I87.312 Chronic venous hypertension (idiopathic) with ulcer of left lower extremity (principal); L97.822 Non-pressure chronic ulcer of other part of left lower leg with fat layer exposed; E05.90 Thyrotoxicosis, unspecified without thyrotoxic crisis or storm; L08.9 Local infection of the skin and subcutaneous tissue, unspecified; B96.20 Unspecified Escherichia coli [E. coli] as the cause of diseases classified elsewhere; B95.62 Methicillin resistant Staphylococcus aureus infection as the cause of diseases classified elsewhere; E11.9 Type 2 diabetes mellitus without complications; E66.9 Obesity, unspecified; I10 Essential (primary) hypertension; Z85.828 Personal history of other malignant neoplasm of skin; Z79.02 Long term (current) use of antithrombotics/antiplatelets | CPT/HCPCS: 11042; A6452 ==

== ENCOUNTER 2021-05-10 10:35 | Outpatient (CLI) | payer MEDICARE, OTHER | END 2021-05-10 23:59 | disposition home or self-care (01) | LOC: WOU 10:35 | PROVIDERS: ATTEND Specialist | DX: I87.312 Chronic venous hypertension (idiopathic) with ulcer of left lower extremity (principal); L97.822 Non-pressure chronic ulcer of other part of left lower leg with fat layer exposed; E05.90 Thyrotoxicosis, unspecified without thyrotoxic crisis or storm; I10 Essential (primary) hypertension; G89.29 Other chronic pain; M54.9 Dorsalgia, unspecified; Z86.14 Personal history of Methicillin resistant Staphylococcus aureus infection; Z85.828 Personal history of other malignant neoplasm of skin; I87.2 Venous insufficiency (chronic) (peripheral) | CPT/HCPCS: A6452; G0463 ==

== ENCOUNTER 2021-05-24 10:25 | Outpatient (CLI) | payer MEDICARE, OTHER ==
[2021-05-24] MEDS ORDERED: CADEXOMER IODINE UD 5 GM TUBE ONE (10:57)
== END 2021-05-24 23:59 | disposition home or self-care (01) ==
LOC: WOU 10:25
PROVIDERS: ATTEND Specialist
DX: I87.312 Chronic venous hypertension (idiopathic) with ulcer of left lower extremity (principal); E07.89 Other specified disorders of thyroid; I87.2 Venous insufficiency (chronic) (peripheral); I10 Essential (primary) hypertension; Z86.14 Personal history of Methicillin resistant Staphylococcus aureus infection; Z88.0 Allergy status to penicillin
CPT/HCPCS: A6452; G0463

== ENCOUNTER 2021-05-31 10:30 | Outpatient (CLI) | payer MEDICARE, OTHER | END 2021-05-31 23:59 | disposition home or self-care (01) | LOC: WOU 10:30 | PROVIDERS: ATTEND Specialist | DX: I87.312 Chronic venous hypertension (idiopathic) with ulcer of left lower extremity (principal); L97.822 Non-pressure chronic ulcer of other part of left lower leg with fat layer exposed; I87.2 Venous insufficiency (chronic) (peripheral); E07.89 Other specified disorders of thyroid; Z79.02 Long term (current) use of antithrombotics/antiplatelets | CPT/HCPCS: 11042; A6452 ==

== ENCOUNTER 2021-06-07 10:30 | Outpatient (CLI) | payer MEDICARE, OTHER ==
[2021-06-07] MEDS ORDERED: UREA 10% -AHA 4% CREAM 57 GM TUBE ONE (11:10)
[2021-06-07] MEDS ORDERED: LIDOCAINE SOLN 4% 50 ML BOTTLE ONE (11:11)
== END 2021-06-07 23:59 | disposition home or self-care (01) ==
LOC: WOU 10:30
PROVIDERS: ATTEND Specialist
DX: I87.312 Chronic venous hypertension (idiopathic) with ulcer of left lower extremity (principal); L97.822 Non-pressure chronic ulcer of other part of left lower leg with fat layer exposed; I87.2 Venous insufficiency (chronic) (peripheral); E07.89 Other specified disorders of thyroid; Z79.02 Long term (current) use of antithrombotics/antiplatelets
CPT/HCPCS: 11042; A6452

== ENCOUNTER 2021-06-14 10:25 | Outpatient (CLI) | payer MEDICARE, OTHER ==
[2021-06-14] MEDS ORDERED: LIDOCAINE SOLN 4% 50 ML BOTTLE ONE (10:38)
[2021-06-14] MEDS ORDERED: UREA 10% -AHA 4% CREAM 57 GM TUBE ONE (11:13)
== END 2021-06-14 23:59 | disposition home or self-care (01) ==
LOC: WOU 10:25
PROVIDERS: ATTEND Specialist
DX: I87.312 Chronic venous hypertension (idiopathic) with ulcer of left lower extremity (principal); L97.822 Non-pressure chronic ulcer of other part of left lower leg with fat layer exposed; I87.2 Venous insufficiency (chronic) (peripheral); E07.89 Other specified disorders of thyroid; M25.572 Pain in left ankle and joints of left foot; Z79.02 Long term (current) use of antithrombotics/antiplatelets
CPT/HCPCS: 11042; A6452

== ENCOUNTER 2021-06-28 10:30 | Outpatient (CLI) | payer MEDICARE, OTHER ==
[2021-06-28] MEDS ORDERED: LIDOCAINE SOLN 4% 50 ML BOTTLE ONE (10:40)
== END 2021-06-28 23:59 | disposition home or self-care (01) ==
LOC: WOU 10:30
PROVIDERS: ATTEND Specialist
DX: I87.312 Chronic venous hypertension (idiopathic) with ulcer of left lower extremity (principal); L97.822 Non-pressure chronic ulcer of other part of left lower leg with fat layer exposed; I87.2 Venous insufficiency (chronic) (peripheral); E07.89 Other specified disorders of thyroid; Z79.02 Long term (current) use of antithrombotics/antiplatelets; M79.661 Pain in right lower leg
CPT/HCPCS: A6452; G0463

== ENCOUNTER 2021-07-04 09:52 | Outpatient (CLI) | payer MEDICARE, OTHER ==
[2021-07-04 11:03] LABS: BILIRUBIN,URINE NEGATIVE (NEGATIVE); COLOR,URINE YELLOW (YELLOW); LEUKOCYTE ESTERASE ,URINE LARGE (NEGATIVE); NITRITE, URINE NEGATIVE (NEGATIVE); PH,URINE 5.5 (5.0-8.0); PROTEIN,URINE NEGATIVE (NEGATIVE); UGLUCOSE NEGATIVE (NEGATIVE); UROBILINOGEN,URINE 0.2 EU/dL (0.2)
[2021-07-04 11:08] LABS: URINE TOTAL PROTEIN 15.2 mg/dL (0-11.9)
[2021-07-04 11:19] LABS: PREALBUMIN 20.2 MG/DL (18.0-35.7); THYROID STIMULATING HORMONE 0.512 uIU/mL (0.358-3.74)
[2021-07-04 11:26] LABS: BASOPHILS % (AUTO) 0.4 % (0.0-2.0); EOSINOPHILS % (AUTO) 1.4 % (0.0-6.0); HEMATOCRIT 38 % (33-45); HEMOGLOBIN 12.4 g/dL (11.5-14.8); LYMPHOCYTES # (AUTO) 1.4 K/uL (0.8-4.8); LYMPHOCYTES % (AUTO) 16.9 % (20.0-44.0); MEAN CORPUSCULAR HGB CONC 33 g/dl (31.0-36.0); MEAN CORPUSCULAR VOLUME 91 fL (82-100); MONOCYTES # (AUTO) 0.4 K/uL (0.1-1.30); MONOCYTES % (AUTO) 4.7 % (2.0-12.0); NEUTROPHILS # (AUTO) 6.2 K/uL (1.8-8.9); NEUTROPHILS % (AUTO) 76.6 % (43.0-81.0); PLATELET COUNT (AUTO) 313 K/uL (150-450); RED BLOOD CELL COUNT(AUTO) 4.13 MIL/uL (4.0-5.2); WHITE BLOOD COUNT (AUTO) 8.1 K/uL (4.3-11.0)
[2021-07-04 11:28] LABS: C-REACTIVE PROTEIN 0.5 mg/dL (0.0-0.9)
[2021-07-04 11:31] LABS: ALBUMIN 3.7 g/dL (3.4-5.0); BILIRUBIN,TOTAL 0.9 mg/dL (0.2-1.0); CALCIUM, SERUM 9.1 mg/dL (8.5-10.1); CREATININE 0.6 mg/dL (0.6-1.3); MAGNESIUM 2.4 mg/dL (1.8-2.4); POTASSIUM 4.3 mmol/L (3.5-5.1); TOTAL PROTEIN, SERUM 8.1 g/dL (6.4-8.2)
[2021-07-04 13:30] LABS: BACTERIA,URINE Rare /HPF (None Seen); SQUAMOUS EPITHELIAL CELL,UR Few /HPF (None Seen)
== END 2021-07-04 23:59 | disposition home or self-care (01) ==
LOC: MSC 09:52
PROVIDERS: ATTEND Internal Medicine
DX: M25.561 Pain in right knee (principal); M25.571 Pain in right ankle and joints of right foot; S81.802D Unspecified open wound, left lower leg, subsequent encounter; I10 Essential (primary) hypertension; Z79.899 Other long term (current) drug therapy
CPT/HCPCS: 36415; 73562; 73610 ×2; 80053; 80061; 81001; 82043; 82570; 82607; 82746; 83036; 83735; 84100; 84134; 84155; 84439; 84443; 85025; 85652; 86038; 86140; 87086; G0463

== ENCOUNTER 2021-07-05 11:15 | Outpatient (CLI) | payer MEDICARE, OTHER ==
[2021-07-05] MEDS ORDERED: LIDOCAINE SOLN 4% 50 ML BOTTLE ONE (11:23)
== END 2021-07-05 23:59 | disposition home or self-care (01) ==
LOC: WOU 11:15
PROVIDERS: ATTEND Specialist
DX: I87.312 Chronic venous hypertension (idiopathic) with ulcer of left lower extremity (principal); L97.822 Non-pressure chronic ulcer of other part of left lower leg with fat layer exposed; I87.2 Venous insufficiency (chronic) (peripheral); E07.89 Other specified disorders of thyroid; I10 Essential (primary) hypertension; Z79.02 Long term (current) use of antithrombotics/antiplatelets
CPT/HCPCS: 11042; A6452

== ENCOUNTER → 2021-07-14 | Outpatient (CLI) | payer MEDICARE, OTHER | END | disposition home or self-care (01) | LOC: MSC 13:30 | PROVIDERS: ATTEND Internal Medicine | DX: Z51.89 Encounter for other specified aftercare (principal); S81.802D Unspecified open wound, left lower leg, subsequent encounter; I10 Essential (primary) hypertension; M25.561 Pain in right knee; M25.571 Pain in right ankle and joints of right foot ==

== ENCOUNTER 2021-08-09 11:00 | Outpatient (CLI) | payer MEDICARE, OTHER ==
[2021-08-09] MEDS ORDERED: SILVER SULFADIAZINE CREAM 25 GM TUBE ONE (11:36)
== END 2021-08-09 23:59 | disposition home or self-care (01) ==
LOC: WOU 11:00
PROVIDERS: ATTEND Specialist
DX: I87.312 Chronic venous hypertension (idiopathic) with ulcer of left lower extremity (principal); L97.822 Non-pressure chronic ulcer of other part of left lower leg with fat layer exposed; I87.2 Venous insufficiency (chronic) (peripheral); E07.89 Other specified disorders of thyroid; Z79.02 Long term (current) use of antithrombotics/antiplatelets
CPT/HCPCS: 11042; 87070; 87077 ×2; 87186; A6452

== ENCOUNTER 2021-08-16 10:35 | Outpatient (CLI) | payer MEDICARE, OTHER ==
[2021-08-16] MEDS ORDERED: GENTAMICIN 0.1% CREAM 15 GM TUBE ONE (11:01)
== END 2021-08-16 23:59 | disposition home or self-care (01) ==
LOC: WOU 10:35
PROVIDERS: ATTEND Specialist
DX: I87.312 Chronic venous hypertension (idiopathic) with ulcer of left lower extremity (principal); L97.822 Non-pressure chronic ulcer of other part of left lower leg with fat layer exposed; I87.2 Venous insufficiency (chronic) (peripheral); E07.89 Other specified disorders of thyroid; Z79.02 Long term (current) use of antithrombotics/antiplatelets
CPT/HCPCS: 11042

== ENCOUNTER 2021-08-23 10:45 | Outpatient (CLI) | payer MEDICARE, OTHER ==
[2021-08-23] MEDS ORDERED: HYDROCORTISONE 1% CREAM 28.35 GM TUBE TP ONE (11:20)
[2021-08-23] MEDS ORDERED: CLOTRIMAZOLE 1% 15 GM TUBE TP ONE (11:21)
== END 2021-08-23 23:59 | disposition home or self-care (01) ==
LOC: WOU 10:45
PROVIDERS: ATTEND Specialist
DX: I87.312 Chronic venous hypertension (idiopathic) with ulcer of left lower extremity (principal); L97.822 Non-pressure chronic ulcer of other part of left lower leg with fat layer exposed; I87.2 Venous insufficiency (chronic) (peripheral); B36.9 Superficial mycosis, unspecified; A49.02 Methicillin resistant Staphylococcus aureus infection, unspecified site; E07.89 Other specified disorders of thyroid; Z79.02 Long term (current) use of antithrombotics/antiplatelets
CPT/HCPCS: A6452; G0463

== ENCOUNTER 2021-09-06 10:30 | Outpatient (CLI) | payer MEDICARE, OTHER ==
[~2021-09-06 10:30] MED LIST changes: +LIDOCAINE SOLN 4% 50 ML BOTTLE ONE; -UREA 10% -AHA 4% CREAM 57 GM TUBE ONE
[2021-09-06] MEDS ORDERED: SILVER SULFADIAZINE CREAM 25 GM TUBE ONE (11:02)
== END 2021-09-06 23:59 | disposition home or self-care (01) ==
LOC: WOU 10:30
PROVIDERS: ATTEND Specialist
DX: I87.312 Chronic venous hypertension (idiopathic) with ulcer of left lower extremity (principal); L97.822 Non-pressure chronic ulcer of other part of left lower leg with fat layer exposed; E07.89 Other specified disorders of thyroid; I87.2 Venous insufficiency (chronic) (peripheral); I10 Essential (primary) hypertension; Z79.02 Long term (current) use of antithrombotics/antiplatelets
CPT/HCPCS: 11042; A6209; A6452

== ENCOUNTER 2021-09-27 12:55 | Outpatient (CLI) | payer MEDICARE, OTHER ==
[2021-09-27] MEDS ORDERED: LIDOCAINE SOLN 4% 50 ML BOTTLE ONE (13:13)
[2021-09-27] MEDS ORDERED: SILVER SULFADIAZINE CREAM 25 GM TUBE ONE (13:42)
[2021-09-27 14:19] LABS: BASOPHILS % (AUTO) 0.5 % (0.0-2.0); EOSINOPHILS % (AUTO) 1.7 % (0.0-6.0); HEMATOCRIT 35 % (33-45); HEMOGLOBIN 11.6 g/dL (11.5-14.8); LYMPHOCYTES # (AUTO) 1.3 K/uL (0.8-4.8); LYMPHOCYTES % (AUTO) 17.6 % (20.0-44.0); MEAN CORPUSCULAR HGB CONC 33 g/dl (31.0-36.0); MEAN CORPUSCULAR VOLUME 90 fL (82-100); MONOCYTES # (AUTO) 0.5 K/uL (0.1-1.30); MONOCYTES % (AUTO) 6.7 % (2.0-12.0); NEUTROPHILS # (AUTO) 5.3 K/uL (1.8-8.9); NEUTROPHILS % (AUTO) 73.5 % (43.0-81.0); PLATELET COUNT (AUTO) 270 K/uL (150-450); WHITE BLOOD COUNT (AUTO) 7.3 K/uL (4.3-11.0)
[2021-09-27 14:56] LABS: C-REACTIVE PROTEIN 0.3 mg/dL (0.0-0.9); CALCIUM, SERUM 8.7 mg/dL (8.5-10.1); CREATININE 0.7 mg/dL (0.6-1.3); POTASSIUM 3.8 mmol/L (3.5-5.1)
== END 2021-09-27 23:59 | disposition home or self-care (01) ==
LOC: WOU 12:55
PROVIDERS: ATTEND Podiatrist Foot & Ankle Surgery
DX: I87.312 Chronic venous hypertension (idiopathic) with ulcer of left lower extremity (principal); L97.822 Non-pressure chronic ulcer of other part of left lower leg with fat layer exposed; I87.2 Venous insufficiency (chronic) (peripheral); E07.89 Other specified disorders of thyroid; I10 Essential (primary) hypertension; Z79.02 Long term (current) use of antithrombotics/antiplatelets
CPT/HCPCS: 11042; 36415; 80048; 85025; 85652; 86140; 87070; 87075; 87077; 87186; A6209; A6452; J7040

== ENCOUNTER 2021-10-04 11:50 | Outpatient (CLI) | payer MEDICARE, OTHER | END 2021-10-04 23:59 | disposition home or self-care (01) | LOC: VASLAB 11:50 | PROVIDERS: ATTEND Internal Medicine | DX: I87.2 Venous insufficiency (chronic) (peripheral) (principal); L97.829 Non-pressure chronic ulcer of other part of left lower leg with unspecified severity | CPT/HCPCS: A6209; A6452; G0463 ==

== ENCOUNTER 2021-10-11 12:59 | Outpatient (CLI) | payer MEDICARE, OTHER ==
[2021-10-11] MEDS ORDERED: HYDROCORTISONE 1% CREAM 28.35 GM TUBE TP ONE (13:24)
[2021-10-11] MEDS ORDERED: SILVER SULFADIAZINE CREAM 25 GM TUBE ONE (13:24)
== END 2021-10-11 23:59 | disposition home or self-care (01) ==
LOC: WOU 12:59
PROVIDERS: ATTEND Podiatrist Foot & Ankle Surgery
DX: I87.312 Chronic venous hypertension (idiopathic) with ulcer of left lower extremity (principal); L97.822 Non-pressure chronic ulcer of other part of left lower leg with fat layer exposed; I87.2 Venous insufficiency (chronic) (peripheral); E07.89 Other specified disorders of thyroid; I10 Essential (primary) hypertension; Z79.02 Long term (current) use of antithrombotics/antiplatelets
CPT/HCPCS: 11042; A6209; A6452; J7040

== ENCOUNTER 2021-10-18 13:00 | Outpatient (CLI) | payer MEDICARE, OTHER ==
[2021-10-18] MEDS ORDERED: LIDOCAINE 2%-EPI 1:100,000 30 ML VIAL ONE (13:22)
[2021-10-18] MEDS ORDERED: SILVER NITRATE APPLICATOR 1 EA BOX ONE (13:35)
[2021-10-18] MEDS ORDERED: SILVER SULFADIAZINE CREAM 25 GM TUBE ONE (13:42)
[2021-10-18] MEDS ORDERED: HYDROCORTISONE 1% CREAM 28.35 GM TUBE TP ONE (13:43)
== END 2021-10-18 23:59 | disposition home or self-care (01) ==
LOC: WOU 13:00
PROVIDERS: ATTEND Podiatrist Foot & Ankle Surgery
DX: I87.312 Chronic venous hypertension (idiopathic) with ulcer of left lower extremity (principal); L97.822 Non-pressure chronic ulcer of other part of left lower leg with fat layer exposed; E07.89 Other specified disorders of thyroid; D23.9 Other benign neoplasm of skin, unspecified
CPT/HCPCS: 11104; 11105; 88305; A6209; A6452; J3490

== ENCOUNTER → 2021-10-25 | Outpatient (CLI) | payer MEDICARE, OTHER | END | disposition home or self-care (01) | LOC: MSC 16:00 | PROVIDERS: ATTEND Internal Medicine | DX: R07.89 Other chest pain (principal); W19.XXXA Unspecified fall, initial encounter; S81.802D Unspecified open wound, left lower leg, subsequent encounter; M17.11 Unilateral primary osteoarthritis, right knee; M19.071 Primary osteoarthritis, right ankle and foot; I10 Essential (primary) hypertension; R73.03 Prediabetes; R76.8 Other specified abnormal immunological findings in serum; R80.9 Proteinuria, unspecified ==

== ENCOUNTER 2021-10-31 15:00 | Outpatient (CLI) | payer MEDICARE, OTHER | END 2021-10-31 23:59 | disposition home or self-care (01) | LOC: MSC 15:00 | PROVIDERS: ATTEND Internal Medicine | DX: Z51.89 Encounter for other specified aftercare (principal); M17.11 Unilateral primary osteoarthritis, right knee; M19.071 Primary osteoarthritis, right ankle and foot; S81.802D Unspecified open wound, left lower leg, subsequent encounter; Z91.81 History of falling; I10 Essential (primary) hypertension; R73.03 Prediabetes; R76.8 Other specified abnormal immunological findings in serum; R80.9 Proteinuria, unspecified ==

== ENCOUNTER 2021-11-08 13:00 | Outpatient (CLI) | payer MEDICARE, OTHER ==
[2021-11-08] MEDS ORDERED: LIDOCAINE 2% JEL 5 ML TUBE ONE (13:01)
[2021-11-08] MEDS ORDERED: GENTAMICIN 0.1% CREAM 15 GM TUBE ONE (13:30)
[2021-11-08] MEDS ORDERED: HYDROCORTISONE 1% CREAM 28.35 GM TUBE TP ONE (13:31)
[2021-11-08 14:28] LABS: BASOPHILS % (AUTO) 0.3 % (0.0-2.0); EOSINOPHILS % (AUTO) 1.4 % (0.0-6.0); HEMATOCRIT 36 % (33-45); HEMOGLOBIN 11.7 g/dL (11.5-14.8); LYMPHOCYTES # (AUTO) 1.2 K/uL (0.8-4.8); LYMPHOCYTES % (AUTO) 14.5 % (20.0-44.0); MEAN CORPUSCULAR HGB CONC 33 g/dl (31.0-36.0); MEAN CORPUSCULAR VOLUME 88 fL (82-100); MONOCYTES # (AUTO) 0.4 K/uL (0.1-1.30); MONOCYTES % (AUTO) 4.9 % (2.0-12.0); NEUTROPHILS # (AUTO) 6.5 K/uL (1.8-8.9); NEUTROPHILS % (AUTO) 78.9 % (43.0-81.0); PLATELET COUNT (AUTO) 326 K/uL (150-450); RED BLOOD CELL COUNT(AUTO) 4.09 MIL/uL (4.0-5.2); WHITE BLOOD COUNT (AUTO) 8.2 K/uL (4.3-11.0)
[2021-11-08 14:43] LABS: ALBUMIN 3.4 g/dL (3.4-5.0); CALCIUM, SERUM 9.4 mg/dL (8.5-10.1); CREATININE 0.6 mg/dL (0.6-1.3); POTASSIUM 4.5 mmol/L (3.5-5.1)
== END 2021-11-08 23:59 | disposition home or self-care (01) ==
LOC: WOU 13:00
PROVIDERS: ATTEND Podiatrist Foot & Ankle Surgery
DX: I87.312 Chronic venous hypertension (idiopathic) with ulcer of left lower extremity (principal); L03.116 Cellulitis of left lower limb; I87.2 Venous insufficiency (chronic) (peripheral); D23.9 Other benign neoplasm of skin, unspecified; E07.89 Other specified disorders of thyroid; Z79.01 Long term (current) use of anticoagulants
CPT/HCPCS: 11042; 36415; 80048; 82040; 83036; 85025; A6452

== ENCOUNTER → 2021-12-01 | Outpatient (CLI) | payer MEDICARE, OTHER | END | disposition home or self-care (01) | LOC: MSC 14:30 | PROVIDERS: ATTEND Internal Medicine | DX: M54.9 Dorsalgia, unspecified (principal); W18.39XA Other fall on same level, initial encounter; Z91.81 History of falling; Y93.9 Activity, unspecified; Y92.002 Bathroom of unspecified non-institutional (private) residence as the place of occurrence of the external cause; S81.802D Unspecified open wound, left lower leg, subsequent encounter; M17.11 Unilateral primary osteoarthritis, right knee; M19.071 Primary osteoarthritis, right ankle and foot; I10 Essential (primary) hypertension; R73.03 Prediabetes; R76.8 Other specified abnormal immunological findings in serum; R80.9 Proteinuria, unspecified ==

== ENCOUNTER → 2021-12-19 | Outpatient (CLI) | payer MEDICARE, OTHER | END | disposition home or self-care (01) | LOC: MSC 15:00 | PROVIDERS: ATTEND Internal Medicine | DX: M54.9 Dorsalgia, unspecified (principal); Z91.81 History of falling; S81.802D Unspecified open wound, left lower leg, subsequent encounter; M17.11 Unilateral primary osteoarthritis, right knee; M19.071 Primary osteoarthritis, right ankle and foot; I10 Essential (primary) hypertension; R73.03 Prediabetes; R76.8 Other specified abnormal immunological findings in serum; R80.9 Proteinuria, unspecified; Z79.899 Other long term (current) drug therapy ==

== ENCOUNTER 2022-01-11 09:45 | Outpatient (CLI) | payer MEDICARE, OTHER | END 2022-01-11 23:59 | disposition home or self-care (01) | LOC: MSC 09:45 | PROVIDERS: ATTEND Internal Medicine | DX: I10 Essential (primary) hypertension (principal); M54.9 Dorsalgia, unspecified; Z91.81 History of falling; S81.802D Unspecified open wound, left lower leg, subsequent encounter; M17.11 Unilateral primary osteoarthritis, right knee; M19.071 Primary osteoarthritis, right ankle and foot; R73.03 Prediabetes; R76.8 Other specified abnormal immunological findings in serum; R80.9 Proteinuria, unspecified; Z79.899 Other long term (current) drug therapy ==

== ENCOUNTER 2022-01-30 09:15 | Outpatient (CLI) | payer MEDICARE, OTHER | END 2022-01-30 23:59 | disposition home or self-care (01) | LOC: MSC 09:15 | PROVIDERS: ATTEND Anesthesiology | DX: M47.816 Spondylosis without myelopathy or radiculopathy, lumbar region (principal); M62.830 Muscle spasm of back; M40.299 Other kyphosis, site unspecified; M48.50XA Collapsed vertebra, not elsewhere classified, site unspecified, initial encounter for fracture ==

== ENCOUNTER 2022-01-30 09:40 | Outpatient (CLI) | payer MEDICARE, OTHER | END 2022-01-30 23:59 | disposition home or self-care (01) | LOC: RAD 09:40 | PROVIDERS: ATTEND Anesthesiology | DX: E04.1 Nontoxic single thyroid nodule (principal); J98.11 Atelectasis; M51.36 Other intervertebral disc degeneration, lumbar region; M51.27 Other intervertebral disc displacement, lumbosacral region; M48.07 Spinal stenosis, lumbosacral region; M43.8X6 Other specified deforming dorsopathies, lumbar region; M48.8X6 Other specified spondylopathies, lumbar region; M85.88 Other specified disorders of bone density and structure, other site; M43.8X4 Other specified deforming dorsopathies, thoracic region | CPT/HCPCS: 72128-TC; 72131-TC ==

== ENCOUNTER 2022-02-13 10:30 | Outpatient (CLI) | payer MEDICARE, OTHER ==
[2022-02-13] MEDS ORDERED: LIDOCAINE SOLN 4% 50 ML BOTTLE ONE (10:45)
[2022-02-13] MEDS ORDERED: DAKINS HALF STRENGTH (0.25%) 480 ML BOTTLE ONE (11:03)
== END 2022-02-13 23:59 | disposition home health service (06) ==
LOC: WOU 10:30
PROVIDERS: ATTEND Podiatrist Foot & Ankle Surgery
DX: I87.2 Venous insufficiency (chronic) (peripheral) (principal); L97.322 Non-pressure chronic ulcer of left ankle with fat layer exposed; M25.572 Pain in left ankle and joints of left foot; R60.0 Localized edema; L84 Corns and callosities; M79.672 Pain in left foot; M79.671 Pain in right foot; I10 Essential (primary) hypertension; Z79.02 Long term (current) use of antithrombotics/antiplatelets
CPT/HCPCS: 11042; 11045; A6197; A6452

== ENCOUNTER 2022-03-13 10:00 | Outpatient (CLI) | payer MEDICARE, OTHER ==
[2022-03-13] MEDS ORDERED: LIDOCAINE SOLN 4% 50 ML BOTTLE ONE (10:19)
[2022-03-13] MEDS ORDERED: SILVER SULFADIAZINE CREAM 25 GM TUBE ONE (10:53)
[2022-03-13] MEDS ORDERED: HYDROCORTISONE 1% CREAM 28.35 GM TUBE TP ONE (10:53)
== END 2022-03-13 23:59 | disposition home health service (06) ==
LOC: WOU 10:00
PROVIDERS: ATTEND Podiatrist Foot & Ankle Surgery
DX: I87.312 Chronic venous hypertension (idiopathic) with ulcer of left lower extremity (principal); L97.322 Non-pressure chronic ulcer of left ankle with fat layer exposed; L84 Corns and callosities; R60.0 Localized edema; M25.572 Pain in left ankle and joints of left foot; M79.672 Pain in left foot; M79.671 Pain in right foot; Z79.02 Long term (current) use of antithrombotics/antiplatelets; E55.9 Vitamin D deficiency, unspecified
CPT/HCPCS: 29581; 36415; 82306; A6207

== ENCOUNTER 2022-03-13 10:05 | Outpatient (CLI) | payer MEDICARE, OTHER ==
[2022-03-13 11:31] LABS: BASOPHILS % (AUTO) 0.4 % (0.0-2.0); EOSINOPHILS % (AUTO) 1.4 % (0.0-6.0); HEMATOCRIT 34 % (33-45); HEMOGLOBIN 11.2 g/dL (11.5-14.8); LYMPHOCYTES # (AUTO) 1.3 K/uL (0.8-4.8); LYMPHOCYTES % (AUTO) 18.6 % (20.0-44.0); MEAN CORPUSCULAR HGB CONC 33 g/dl (31.0-36.0); MEAN CORPUSCULAR VOLUME 86 fL (82-100); MONOCYTES # (AUTO) 0.5 K/uL (0.1-1.30); NEUTROPHILS # (AUTO) 4.9 K/uL (1.8-8.9); NEUTROPHILS % (AUTO) 72.6 % (43.0-81.0); PLATELET COUNT (AUTO) 276 K/uL (150-450); RED BLOOD CELL COUNT(AUTO) 3.95 MIL/uL (4.0-5.2); WHITE BLOOD COUNT (AUTO) 6.7 K/uL (4.3-11.0)
[2022-03-13 11:57] LABS: THYROID STIMULATING HORMONE 0.535 uIU/mL (0.358-3.74)
[2022-03-13 12:13] LABS: C-REACTIVE PROTEIN < 0.2 mg/dL (0.0-0.9)
[2022-03-13 12:16] LABS: ALANINE AMINOTRANSFERASE 13 U/L (12-78); ALBUMIN 3.4 g/dL (3.4-5.0); ALKALINE PHOSPHATASE 105 U/L (46-116); ASPARTATE AMINOTRANSFERASE 17 U/L (15-37); BILIRUBIN,TOTAL 1.1 mg/dL (0.2-1.0); CALCIUM, SERUM 8.8 mg/dL (8.5-10.1); CARBON DIOXIDE 30 mmol/L (21-32); CHLORIDE 108 mmol/L (98-107); CREATININE 0.7 mg/dL (0.6-1.3); GLUCOSE 105 mg/dL (74-106); MAGNESIUM 2.1 mg/dL (1.8-2.4); PHOSPHORUS 3.3 mg/dL (2.5-4.9); POTASSIUM 4.1 mmol/L (3.5-5.1); SODIUM SERUM 141 mmol/L (136-145); TOTAL PROTEIN, SERUM 7.5 g/dL (6.4-8.2); UREA NITROGEN, BLOOD 21 mg/dL (7-18)
== END 2022-03-13 23:59 | disposition home or self-care (01) ==
LOC: MSC 10:05
PROVIDERS: ATTEND Internal Medicine
DX: I10 Essential (primary) hypertension (principal); Z91.81 History of falling; S81.802D Unspecified open wound, left lower leg, subsequent encounter; M17.11 Unilateral primary osteoarthritis, right knee; M19.071 Primary osteoarthritis, right ankle and foot; R73.03 Prediabetes; R76.8 Other specified abnormal immunological findings in serum; R80.9 Proteinuria, unspecified; Z79.899 Other long term (current) drug therapy
CPT/HCPCS: 36415; 80053; 82607; 82746; 83036; 83735; 84100; 84439; 84443; 85025; 85652; 86140; G0463

== ENCOUNTER 2022-03-20 09:43 | Outpatient (CLI) | payer MEDICARE, OTHER ==
[2022-03-20] MEDS ORDERED: LIDOCAINE SOLN 4% 50 ML BOTTLE ONE (10:13)
[2022-03-20] MEDS ORDERED: HYDROCORTISONE 1% CREAM 28.35 GM TUBE TP ONE (10:46)
== END 2022-03-20 23:59 | disposition home health service (06) ==
LOC: WOU 09:43
PROVIDERS: ATTEND Podiatrist Foot & Ankle Surgery
DX: I87.312 Chronic venous hypertension (idiopathic) with ulcer of left lower extremity (principal); L97.322 Non-pressure chronic ulcer of left ankle with fat layer exposed; M25.572 Pain in left ankle and joints of left foot; M79.672 Pain in left foot; M79.671 Pain in right foot; L84 Corns and callosities; Z79.02 Long term (current) use of antithrombotics/antiplatelets
CPT/HCPCS: 15271; A6207; Q4158

== ENCOUNTER 2022-03-27 09:50 | Outpatient (CLI) | payer MEDICARE, OTHER ==
[2022-03-27] MEDS ORDERED: LIDOCAINE SOLN 4% 50 ML BOTTLE ONE (09:55)
[2022-03-27] MEDS ORDERED: UREA 10% -AHA 4% CREAM 57 GM TUBE ONE (10:18)
== END 2022-03-27 23:59 | disposition home health service (06) ==
LOC: WOU 09:50
PROVIDERS: ATTEND Podiatrist Foot & Ankle Surgery
DX: I87.312 Chronic venous hypertension (idiopathic) with ulcer of left lower extremity (principal); L97.322 Non-pressure chronic ulcer of left ankle with fat layer exposed; L84 Corns and callosities; R60.0 Localized edema; M25.572 Pain in left ankle and joints of left foot; M79.672 Pain in left foot; M79.671 Pain in right foot; Z79.02 Long term (current) use of antithrombotics/antiplatelets
CPT/HCPCS: 15271; A6207; Q4158

== ENCOUNTER 2022-04-03 09:50 | Outpatient (CLI) | payer MEDICARE, OTHER ==
[2022-04-03] MEDS ORDERED: LIDOCAINE SOLN 4% 50 ML BOTTLE ONE (09:53)
== END 2022-04-03 23:59 | disposition home health service (06) ==
LOC: WOU 09:50
PROVIDERS: ATTEND Podiatrist Foot & Ankle Surgery
DX: I87.312 Chronic venous hypertension (idiopathic) with ulcer of left lower extremity (principal); L97.322 Non-pressure chronic ulcer of left ankle with fat layer exposed; I87.2 Venous insufficiency (chronic) (peripheral); L84 Corns and callosities; R60.0 Localized edema; M25.572 Pain in left ankle and joints of left foot; M25.571 Pain in right ankle and joints of right foot; Z79.02 Long term (current) use of antithrombotics/antiplatelets
CPT/HCPCS: 15271; Q4158; A6207

== ENCOUNTER 2022-04-10 09:44 | Outpatient (CLI) | payer MEDICARE, OTHER ==
[2022-04-10] MEDS ORDERED: LIDOCAINE SOLN 4% 50 ML BOTTLE ONE (09:56)
== END 2022-04-10 23:59 | disposition home health service (06) ==
LOC: WOU 09:44
PROVIDERS: ATTEND Podiatrist Foot & Ankle Surgery
DX: I87.312 Chronic venous hypertension (idiopathic) with ulcer of left lower extremity (principal); L97.822 Non-pressure chronic ulcer of other part of left lower leg with fat layer exposed; L84 Corns and callosities; R60.0 Localized edema; M25.572 Pain in left ankle and joints of left foot; M79.672 Pain in left foot; M79.671 Pain in right foot; Z79.02 Long term (current) use of antithrombotics/antiplatelets
CPT/HCPCS: 15271; Q4158; A6207

== ENCOUNTER 2022-04-17 06:58 | Emergency (ER) | payer MEDICARE, OTHER ==
[~2022-04-17] VITALS: Ht 160 cm; Wt 61.2 kg
[2022-04-17] MEDS ORDERED: PANTOPRAZOLE 40 MG VIAL ONE (07:10)
[2022-04-17] MEDS ORDERED: ONDANSETRON HCL/PF 4 MG/2 ML VIAL ONE (07:10)
--- NOTE | 2022-04-17 07:18 | NUR ---
[id number] FROM HOME C/O NAUSEA X1 DAY -VOMITTING AFEBRILE AT TRIAGE. AWAKE AND ALERT X3 AMBULATORY AND BREATHING EVEN AND UNLABORED. V/S WNL.
--- NOTE | 2022-04-17 07:19 | NUR ---
20g iv line established lf. blood drawn and sent to lab.
[2022-04-17] MEDS ORDERED: IV NS 0.9% 1,000 ML BAG IV ONE (07:30)
[2022-04-17] MEDS ORDERED: ONDANSETRON HCL/PF 4 MG/2 ML VIAL IVP ONE (07:30)
[2022-04-17] MEDS ORDERED: PANTOPRAZOLE 40 MG VIAL IV ONE (07:30)
[2022-04-17 07:35] LABS: BASOPHILS % (AUTO) 0.3 % (0.0-2.0); EOSINOPHILS % (AUTO) 2.6 % (0.0-6.0); HEMATOCRIT 38 % (33-45); HEMOGLOBIN 12.4 g/dL (11.5-14.8); MEAN CORPUSCULAR HGB CONC 33 g/dl (31.0-36.0); MEAN CORPUSCULAR VOLUME 87 fL (82-100); MONOCYTES # (AUTO) 0.3 K/uL (0.1-1.30); MONOCYTES % (AUTO) 4.5 % (2.0-12.0); NEUTROPHILS # (AUTO) 4.6 K/uL (1.8-8.9); NEUTROPHILS % (AUTO) 64.6 % (43.0-81.0); PLATELET COUNT (AUTO) 270 K/uL (150-450); RED BLOOD CELL COUNT(AUTO) 4.35 MIL/uL (4.0-5.2); WHITE BLOOD COUNT (AUTO) 7.1 K/uL (4.3-11.0)
--- NOTE | 2022-04-17 07:56 | NUR ---
WARM BLANKET PROVIDED TO PT FOR COMFORT. NO COMPLAINT OF NAUSEA AT THIS TIME.
[2022-04-17 08:17] LABS: CALCIUM, SERUM 8.8 mg/dL (8.5-10.1); CREATININE 0.6 mg/dL (0.6-1.3); POTASSIUM 3.3 mmol/L (3.5-5.1)
[2022-04-17 08:23] LABS: ALBUMIN 3.3 g/dL (3.4-5.0); BILIRUBIN,DIRECT 0.2 mg/dL (0.0-0.2); BILIRUBIN,TOTAL 0.8 mg/dL (0.2-1.0)
--- NOTE | 2022-04-17 08:38 | NUR ---
FAMILY ANMOL CALLED. LEFT CONTACT # [phone]
--- NOTE | 2022-04-17 08:54 | NUR ---
URINE COLLECTED AND SENT
[2022-04-17] MEDS ORDERED: POTASSIUM CHLORIDE 20 MEQ TAB.PRT.SR PO ONE ×2 (09:00→09:24)
[2022-04-17 09:15] LABS: TOTAL PROTEIN, SERUM 7.9 g/dL (6.4-8.2)
[2022-04-17 09:43] LABS: BILIRUBIN,URINE NEGATIVE (NEGATIVE); COLOR,URINE YELLOW (YELLOW); LEUKOCYTE ESTERASE ,URINE SMALL (NEGATIVE); NITRITE, URINE NEGATIVE (NEGATIVE); PH,URINE 7.5 (5.0-8.0); PROTEIN,URINE NEGATIVE (NEGATIVE); UGLUCOSE NEGATIVE (NEGATIVE); UROBILINOGEN,URINE 0.2 EU/dL (0.2)
[2022-04-17 09:48] LABS: BACTERIA,URINE Rare /HPF (None Seen); SQUAMOUS EPITHELIAL CELL,UR Few /HPF (None Seen)
[2022-04-17] MEDS ORDERED: CIPR-262 PO (10:07)
[2022-04-17] MEDS ORDERED: ONDA4TAB5 PO (10:07)
--- NOTE | 2022-04-17 10:13 | NUR ---
SPOKE TO "ANMOL" DAUGHTER. SHE WILL COME [employer] MANAGER THE PATIENT IN 15 MINS.
--- NOTE | 2022-04-17 11:00 | NUR ---
IV removed. Catheter intact and site benign. Pressure and 4x4 applied to site. No bleeding noted.
--- NOTE | 2022-04-17 11:05 | NUR ---
Patient discharged to home in stable condition. Written and verbal after care instructions given. Patient verbalizes understanding of instruction.
[2022-04-17 11:06] VITALS: BP 134/77
== END 2022-04-17 11:06 | disposition home or self-care (01) ==
LOC: ER 07:00
DX: R11.2 Nausea with vomiting, unspecified (principal); N39.0 Urinary tract infection, site not specified; E86.0 Dehydration; E87.6 Hypokalemia; Z88.6 Allergy status to analgesic agent; Z88.0 Allergy status to penicillin
CPT/HCPCS: 99285; 96374; 71045; 96361; 96375; 93005; 85025; 80048; 87086; 83690; 80076; 81001; 36415; J2405; J7030 ×2; C9113

== ENCOUNTER 2022-05-03 17:15 | Emergency (ER) | payer MEDICARE, OTHER ==
[~2022-05-03] VITALS: Ht 152.4 cm; Wt 45.4 kg
[~2022-05-03 17:15] MED LIST changes: +CIPR-262 PO; -LIDOCAINE SOLN 4% 50 ML BOTTLE ONE; +ONDA4TAB5 PO
--- NOTE | 2022-05-03 17:20 | NUR ---
RECIVED PT 86 YRS FEMALE C/O DIZZNESS FOR ONE DAYS AWAKE AND ALERT AMBULTORY WITH NO WEEKNESS
--- NOTE | 2022-05-03 19:00 | NUR ---
UA SENT TO LAB
--- NOTE | 2022-05-03 19:31 | NUR ---
HAND OFF MYRA JULIEN
[2022-05-03 19:47] LABS: BILIRUBIN,URINE NEGATIVE (NEGATIVE); COLOR,URINE YELLOW (YELLOW); LEUKOCYTE ESTERASE ,URINE MODERATE (NEGATIVE); NITRITE, URINE NEGATIVE (NEGATIVE); PH,URINE 6.5 (5.0-8.0); PROTEIN,URINE NEGATIVE (NEGATIVE); UGLUCOSE NEGATIVE (NEGATIVE); UROBILINOGEN,URINE 0.2 EU/dL (0.2)
[2022-05-03 19:55] LABS: BACTERIA,URINE 2+ /HPF (None Seen); SQUAMOUS EPITHELIAL CELL,UR 0-2 /HPF (None Seen); WBC,URINE 21-50 /HPF (0-3)
[2022-05-03] MEDS ORDERED: SULF1TAB48 PO (20:26)
--- NOTE | 2022-05-03 20:49 | NUR ---
Patient discharged to home in stable condition. Written and verbal after care instructions given. Patient verbalizes understanding of instruction.IV removed. Catheter intact and site benign. Pressure and 4x4 applied to site. No bleeding noted.
[2022-05-03 20:50] VITALS: BP 123/60
== END 2022-05-03 20:50 | disposition home or self-care (01) ==
LOC: ER 17:18
DX: N39.0 Urinary tract infection, site not specified (principal); I10 Essential (primary) hypertension; Z88.6 Allergy status to analgesic agent; Z88.0 Allergy status to penicillin; Z79.899 Other long term (current) drug therapy
CPT/HCPCS: 81001; 87086-TC

== ENCOUNTER 2022-05-17 17:55 | Emergency (ER) | payer MEDICARE, OTHER ==
[~2022-05-17] VITALS: Ht 160 cm; Wt 45.8 kg
[~2022-05-17 17:55] MED LIST changes: +SULF1TAB48 PO
--- NOTE | 2022-05-17 18:15 | NUR ---
RECEIVED PT CAME BY KIRT FROM HOME C/O DIZZNESS AND WEEKNESS FOR 2 DAYS awake and alert respiration spont and easy diness any weekness or numbness
[2022-05-17] MEDS ORDERED: MECLIZINE HCL 25 MG TABLET ONE (18:24)
[2022-05-17] MEDS ORDERED: ONDANSETRON HCL/PF 4 MG/2 ML VIAL ONE (18:24)
--- NOTE | 2022-05-17 18:25 | NUR ---
examine by dr. babni
[2022-05-17] MEDS ORDERED: MECLIZINE HCL 12.5 MG TABLET PO ONE (18:30)
[2022-05-17] MEDS ORDERED: ONDANSETRON HCL/PF 4 MG/2 ML VIAL IVP ONE (18:30)
[2022-05-17] MEDS ORDERED: IV NS 0.9% 500 ML BAG IV ONE (18:30)
--- NOTE | 2022-05-17 18:30 | NUR ---
INSERTED ANGOCATHETER FR 3 20 ON RT FOR ARM BLOOD DROW AND SENTED TO LAB
--- NOTE | 2022-05-17 18:31 | NUR ---
ANMOL ROBLEDO ([facility]) [phone]
[2022-05-17 19:27] LABS: CALCIUM, SERUM 8.8 mg/dL (8.5-10.1); CREATININE 0.7 mg/dL (0.6-1.3)
--- NOTE | 2022-05-17 19:31 | NUR ---
HAND OFF TO NITIN JULIEN
[2022-05-17 20:04] LABS: BASOPHILS % (AUTO) 0.3 % (0.0-2.0); EOSINOPHILS % (AUTO) 2.1 % (0.0-6.0); HEMATOCRIT 34 % (33-45); HEMOGLOBIN 11.4 g/dL (11.5-14.8); LYMPHOCYTES # (AUTO) 1.4 K/uL (0.8-4.8); LYMPHOCYTES % (AUTO) 22.8 % (20.0-44.0); MEAN CORPUSCULAR HGB CONC 33 g/dl (31.0-36.0); MEAN CORPUSCULAR VOLUME 86 fL (82-100); MONOCYTES # (AUTO) 0.5 K/uL (0.1-1.30); MONOCYTES % (AUTO) 7.3 % (2.0-12.0); NEUTROPHILS # (AUTO) 4.2 K/uL (1.8-8.9); NEUTROPHILS % (AUTO) 67.5 % (43.0-81.0); PLATELET COUNT (AUTO) 244 K/uL (150-450); RED BLOOD CELL COUNT(AUTO) 3.98 MIL/uL (4.0-5.2); WHITE BLOOD COUNT (AUTO) 6.2 K/uL (4.3-11.0)
[2022-05-17] MEDS ORDERED: MECL-182 PO (20:15)
--- NOTE | 2022-05-17 20:28 | NUR ---
CALLED ANMOL FOR PT PICKUP
[2022-05-17 21:00] VITALS: BP 142/61
== END 2022-05-17 21:00 | disposition home or self-care (01) ==
LOC: ER 18:01
DX: R42 Dizziness and giddiness (principal); I10 Essential (primary) hypertension; E11.9 Type 2 diabetes mellitus without complications; Z88.6 Allergy status to analgesic agent; Z88.0 Allergy status to penicillin; Z79.899 Other long term (current) drug therapy
CPT/HCPCS: 99284; 96374; 70450; 85025; 80048; 36415; J8597; J2405; J7030

== ENCOUNTER 2022-06-08 08:10 | Outpatient (CLI) | payer MEDICARE, OTHER ==
[~2022-06-08 08:10] MED LIST changes: +LIDOCAINE SOLN 4% 50 ML BOTTLE ONE; +MECL-182 PO
[2022-06-08] MEDS ORDERED: HYDROCORTISONE 1% CREAM 28.35 GM TUBE TP ONE (08:43)
== END 2022-06-08 23:59 | disposition home health service (06) ==
LOC: WOU 08:10
PROVIDERS: ATTEND Podiatrist Foot & Ankle Surgery
DX: I87.312 Chronic venous hypertension (idiopathic) with ulcer of left lower extremity (principal); L97.325 Non-pressure chronic ulcer of left ankle with muscle involvement without evidence of necrosis; I87.2 Venous insufficiency (chronic) (peripheral); L84 Corns and callosities; R60.0 Localized edema; B35.1 Tinea unguium; M79.672 Pain in left foot; M79.671 Pain in right foot; Z79.02 Long term (current) use of antithrombotics/antiplatelets
CPT/HCPCS: 11042; A6207

== ENCOUNTER 2022-06-13 12:20 | Outpatient (CLI) | payer MEDICARE, OTHER ==
[~2022-06-13 12:20] MED LIST changes: -LIDOCAINE SOLN 4% 50 ML BOTTLE ONE
[2022-06-13] MEDS ORDERED: UREA 10% -AHA 4% CREAM 57 GM TUBE ONE (13:30)
== END 2022-06-13 23:59 | disposition home health service (06) ==
LOC: WOU 12:20
PROVIDERS: ATTEND Podiatrist Foot & Ankle Surgery
DX: I87.312 Chronic venous hypertension (idiopathic) with ulcer of left lower extremity (principal); L97.322 Non-pressure chronic ulcer of left ankle with fat layer exposed; L84 Corns and callosities; R60.0 Localized edema; M25.572 Pain in left ankle and joints of left foot; M79.672 Pain in left foot; M79.671 Pain in right foot; B35.1 Tinea unguium; Z79.02 Long term (current) use of antithrombotics/antiplatelets
CPT/HCPCS: 15271; Q4158; A6207

== ENCOUNTER 2022-07-04 13:00 | Outpatient (CLI) | payer MEDICARE, OTHER ==
[2022-07-04] MEDS ORDERED: UREA 10% -AHA 4% CREAM 57 GM TUBE ONE (13:28)
== END 2022-07-04 23:59 | disposition home health service (06) ==
LOC: WOU 13:00
PROVIDERS: ATTEND Podiatrist Foot & Ankle Surgery
DX: I87.312 Chronic venous hypertension (idiopathic) with ulcer of left lower extremity (principal); L97.322 Non-pressure chronic ulcer of left ankle with fat layer exposed; L84 Corns and callosities; R60.0 Localized edema; B35.1 Tinea unguium; M25.572 Pain in left ankle and joints of left foot; M79.672 Pain in left foot; M79.671 Pain in right foot; Z79.02 Long term (current) use of antithrombotics/antiplatelets
CPT/HCPCS: 11042; A6197; A6207

== ENCOUNTER 2022-07-25 13:12 | Outpatient (CLI) | payer MEDICARE, OTHER ==
[2022-07-25] MEDS ORDERED: UREA 10% -AHA 4% CREAM 57 GM TUBE ONE (13:24)
== END 2022-07-25 23:59 | disposition home health service (06) ==
LOC: WOU 13:12
PROVIDERS: ATTEND Podiatrist Foot & Ankle Surgery
DX: I87.312 Chronic venous hypertension (idiopathic) with ulcer of left lower extremity (principal); L97.322 Non-pressure chronic ulcer of left ankle with fat layer exposed; L84 Corns and callosities; R60.0 Localized edema; M79.672 Pain in left foot; M79.671 Pain in right foot; M25.572 Pain in left ankle and joints of left foot; B35.1 Tinea unguium; Z79.02 Long term (current) use of antithrombotics/antiplatelets
CPT/HCPCS: 15271; Q4158; A6207

== ENCOUNTER 2022-08-03 11:10 | Outpatient (CLI) | payer MEDICARE, OTHER ==
[2022-08-03] MEDS ORDERED: LIDOCAINE SOLN 4% 50 ML BOTTLE ONE (11:16)
== END 2022-08-03 23:59 | disposition home health service (06) ==
LOC: WOU 11:10
PROVIDERS: ATTEND Podiatrist Foot & Ankle Surgery
DX: I87.312 Chronic venous hypertension (idiopathic) with ulcer of left lower extremity (principal); L97.322 Non-pressure chronic ulcer of left ankle with fat layer exposed; I87.2 Venous insufficiency (chronic) (peripheral); L84 Corns and callosities; R60.0 Localized edema; B35.1 Tinea unguium; M25.572 Pain in left ankle and joints of left foot; M79.672 Pain in left foot; M79.671 Pain in right foot; Z79.02 Long term (current) use of antithrombotics/antiplatelets
CPT/HCPCS: 11042; A6207

== ENCOUNTER 2022-08-10 11:53 | Outpatient (CLI) | payer MEDICARE, OTHER ==
[2022-08-10] MEDS ORDERED: UREA 10% -AHA 4% CREAM 57 GM TUBE ONE (13:24)
== END 2022-08-10 23:59 | disposition home health service (06) ==
LOC: WOU 11:53
PROVIDERS: ATTEND Podiatrist Foot & Ankle Surgery
DX: I87.312 Chronic venous hypertension (idiopathic) with ulcer of left lower extremity (principal); L97.822 Non-pressure chronic ulcer of other part of left lower leg with fat layer exposed; R60.0 Localized edema; L84 Corns and callosities; M25.572 Pain in left ankle and joints of left foot; M79.672 Pain in left foot; M79.671 Pain in right foot; B35.1 Tinea unguium; Z79.02 Long term (current) use of antithrombotics/antiplatelets
CPT/HCPCS: 29581; A6207

== ENCOUNTER 2022-08-24 08:34 | Outpatient (CLI) | payer MEDICARE, OTHER ==
[2022-08-24] MEDS ORDERED: COLLAGENASE 5 GM TUBE UD TP ONE (09:02)
[2022-08-24] MEDS ORDERED: UREA 10% -AHA 4% CREAM 57 GM TUBE ONE (09:03)
== END 2022-08-24 23:59 | disposition home health service (06) ==
LOC: WOU 08:34
PROVIDERS: ATTEND Podiatrist Foot & Ankle Surgery
DX: I87.312 Chronic venous hypertension (idiopathic) with ulcer of left lower extremity (principal); L97.322 Non-pressure chronic ulcer of left ankle with fat layer exposed; L84 Corns and callosities; R60.0 Localized edema; B35.1 Tinea unguium; M25.572 Pain in left ankle and joints of left foot; M79.672 Pain in left foot; M79.671 Pain in right foot; R73.03 Prediabetes; Z79.02 Long term (current) use of antithrombotics/antiplatelets
CPT/HCPCS: 11042; A6207; G0463

== ENCOUNTER 2022-10-05 10:20 | Outpatient (CLI) | payer MEDICARE, OTHER | END 2022-10-05 23:59 | disposition home health service (06) | LOC: WOU 10:20 | PROVIDERS: ATTEND Podiatrist Foot & Ankle Surgery | DX: I87.311 Chronic venous hypertension (idiopathic) with ulcer of right lower extremity (principal); L97.322 Non-pressure chronic ulcer of left ankle with fat layer exposed; R60.0 Localized edema; L84 Corns and callosities; B35.1 Tinea unguium; L60.3 Nail dystrophy; M79.672 Pain in left foot; M79.671 Pain in right foot; Z79.02 Long term (current) use of antithrombotics/antiplatelets | CPT/HCPCS: 11042; A6210; A6207 ==

== ENCOUNTER 2022-10-19 10:30 | Outpatient (CLI) | payer MEDICARE, OTHER | END 2022-10-19 23:59 | disposition home health service (06) | LOC: WOU 10:30 | PROVIDERS: ATTEND Podiatrist Foot & Ankle Surgery | DX: I87.312 Chronic venous hypertension (idiopathic) with ulcer of left lower extremity (principal); L97.322 Non-pressure chronic ulcer of left ankle with fat layer exposed; B35.1 Tinea unguium; L84 Corns and callosities; R60.0 Localized edema; M25.572 Pain in left ankle and joints of left foot; M79.672 Pain in left foot; M79.671 Pain in right foot; L60.3 Nail dystrophy; Z79.02 Long term (current) use of antithrombotics/antiplatelets | CPT/HCPCS: 15271; Q4158; A6207 ==

== ENCOUNTER 2022-11-09 10:34 | Outpatient (CLI) | payer MEDICARE, OTHER ==
[~2022-11-09 10:34] MED LIST changes: +LIDOCAINE SOLN 4% 50 ML BOTTLE ONE
== END 2022-11-09 23:59 | disposition home health service (06) ==
LOC: WOU 10:34
PROVIDERS: ATTEND Podiatrist Foot & Ankle Surgery
DX: I87.312 Chronic venous hypertension (idiopathic) with ulcer of left lower extremity (principal); L97.322 Non-pressure chronic ulcer of left ankle with fat layer exposed; M25.572 Pain in left ankle and joints of left foot; M79.672 Pain in left foot; M79.671 Pain in right foot; B35.1 Tinea unguium; L84 Corns and callosities
CPT/HCPCS: 11042; A6207

== ENCOUNTER 2022-11-23 10:34 | Outpatient (CLI) | payer MEDICARE, OTHER ==
[~2022-11-23 10:34] MED LIST changes: -LIDOCAINE SOLN 4% 50 ML BOTTLE ONE
== END 2022-11-23 23:59 | disposition home health service (06) ==
LOC: WOU 10:34
PROVIDERS: ATTEND Podiatrist Foot & Ankle Surgery
DX: I87.312 Chronic venous hypertension (idiopathic) with ulcer of left lower extremity (principal); L97.322 Non-pressure chronic ulcer of left ankle with fat layer exposed; L84 Corns and callosities; R60.0 Localized edema; M25.572 Pain in left ankle and joints of left foot; M79.672 Pain in left foot; M79.671 Pain in right foot; B35.1 Tinea unguium; I10 Essential (primary) hypertension
CPT/HCPCS: 17250; A6454

== ENCOUNTER 2022-12-07 10:07 | Outpatient (CLI) | payer MEDICARE, OTHER ==
[2022-12-07] MEDS ORDERED: UREA 10% -AHA 4% CREAM 57 GM TUBE ONE (10:25)
== END 2022-12-07 23:59 | disposition home health service (06) ==
LOC: WOU 10:07
PROVIDERS: ATTEND Podiatrist Foot & Ankle Surgery
DX: I87.312 Chronic venous hypertension (idiopathic) with ulcer of left lower extremity (principal); L97.322 Non-pressure chronic ulcer of left ankle with fat layer exposed; L84 Corns and callosities; M79.672 Pain in left foot; M79.671 Pain in right foot; B35.1 Tinea unguium; R60.0 Localized edema; M25.572 Pain in left ankle and joints of left foot
CPT/HCPCS: 11042; A6454

== ENCOUNTER 2022-12-20 08:02 | Emergency (ER) | payer MEDICARE, OTHER ==
[~2022-12-20] VITALS: Ht 160 cm; Wt 49.4 kg
--- NOTE | 2022-12-20 08:22 | NUR ---
DR. CASTILLO AT BEDSIDE
[2022-12-20] MEDS ORDERED: IV NS 0.9% 1,000 ML BAG IV ONE (08:30)
--- NOTE | 2022-12-20 08:57 | NUR ---
iv established. LAC 20g
--- NOTE | 2022-12-20 08:57 | NUR ---
blood drawn and sent to lab
--- NOTE | 2022-12-20 09:02 | NUR ---
xray at bedside
[2022-12-20 09:03] LABS: BASOPHILS % (AUTO) 0.6 % (0.0-2.0); EOSINOPHILS % (AUTO) 1.3 % (0.0-6.0); HEMATOCRIT 37 % (33-45); HEMOGLOBIN 11.8 g/dL (11.5-14.8); LYMPHOCYTES # (AUTO) 1.1 K/uL (0.8-4.8); LYMPHOCYTES % (AUTO) 16.4 % (20.0-44.0); MEAN CORPUSCULAR HGB CONC 32 g/dl (31.0-36.0); MEAN CORPUSCULAR VOLUME 87 fL (82-100); MONOCYTES # (AUTO) 0.4 K/uL (0.1-1.30); MONOCYTES % (AUTO) 6.5 % (2.0-12.0); NEUTROPHILS % (AUTO) 75.2 % (43.0-81.0); PLATELET COUNT (AUTO) 274 K/uL (150-450); RED BLOOD CELL COUNT(AUTO) 4.18 MIL/uL (4.0-5.2); WHITE BLOOD COUNT (AUTO) 6.7 K/uL (4.3-11.0)
--- NOTE | 2022-12-20 09:34 | NUR ---
URINE SAMPLE COLLECTED AND SENT TO LAB
[2022-12-20 10:02] LABS: BILIRUBIN,URINE NEGATIVE (NEGATIVE); COLOR,URINE YELLOW (YELLOW); LEUKOCYTE ESTERASE ,URINE 1+ (NEGATIVE); NITRITE, URINE NEGATIVE (NEGATIVE); PROTEIN,URINE NEGATIVE (NEGATIVE); UGLUCOSE NEGATIVE (NEGATIVE); UROBILINOGEN,URINE 0.2 EU/dL (0.2)
[2022-12-20 10:14] LABS: BACTERIA,URINE Few /HPF (None Seen); WBC,URINE 51-80 /HPF (0-3)
[2022-12-20] MEDS ORDERED: SULFAMETH/TRIMETH 800/160 MG 1 UDTAB TABLET PO ONE (10:30)
[2022-12-20] MEDS ORDERED: SULFAMETH/TRIMETH 800/160 MG 1 UDTAB TABLET ONE (10:44)
[2022-12-20 11:58] LABS: CALCIUM, SERUM 8.7 mg/dL (8.5-10.1); CARBON DIOXIDE 26 mmol/L (21-32); CHLORIDE 109 mmol/L (98-107); CREATININE 0.7 mg/dL (0.6-1.3); GLUCOSE 111 mg/dL (74-106); POTASSIUM 4.1 mmol/L (3.5-5.1); SODIUM SERUM 141 mmol/L (136-145); UREA NITROGEN, BLOOD 14 mg/dL (7-18)
[2022-12-20] MEDS ORDERED: SULF1TAB48 PO (12:10)
--- NOTE | 2022-12-20 12:30 | NUR ---
IV removed. Catheter intact and site benign. Pressure and 4x4 applied to site. No bleeding noted.Patient discharged to home in stable condition. Written and verbal after care instructions given. Patient verbalizes understanding of instruction.
[2022-12-20 17:00] VITALS: BP 140/70
== END 2022-12-20 12:30 | disposition home or self-care (01) ==
LOC: ER 08:12
DX: N39.0 Urinary tract infection, site not specified (principal); R42 Dizziness and giddiness; I10 Essential (primary) hypertension; E11.9 Type 2 diabetes mellitus without complications; Z79.899 Other long term (current) drug therapy; Z88.1 Allergy status to other antibiotic agents; Z88.0 Allergy status to penicillin
CPT/HCPCS: 99285; 96360; 71045; 93005; 85025; 80048; 87086; 81001; 36415; 84484; J7030

== ENCOUNTER 2022-12-25 10:06 | Outpatient (CLI) | payer MEDICARE, OTHER | END 2022-12-25 23:59 | disposition home health service (06) | LOC: WOU 10:06 | PROVIDERS: ATTEND Podiatrist Foot & Ankle Surgery | DX: I87.312 Chronic venous hypertension (idiopathic) with ulcer of left lower extremity (principal); L97.322 Non-pressure chronic ulcer of left ankle with fat layer exposed; L84 Corns and callosities; R60.0 Localized edema; M25.572 Pain in left ankle and joints of left foot; M79.672 Pain in left foot; M79.671 Pain in right foot; B35.1 Tinea unguium | CPT/HCPCS: 11042; A6210; A6207 ==

== ENCOUNTER 2022-12-25 10:34 | Outpatient (CLI) | payer MEDICARE, OTHER ==
[2022-12-25 12:02] LABS: C-REACTIVE PROTEIN 0.2 mg/dL (0.0-0.9); FREE T4 (FREE THYROXINE) 1.02 ng/dL (0.76-1.46); THYROID STIMULATING HORMONE 0.482 uIU/mL (0.358-3.74)
[2022-12-25 12:16] LABS: ALBUMIN 3.9 g/dL (3.4-5.0); BILIRUBIN,TOTAL 0.7 mg/dL (0.2-1.0); CALCIUM, SERUM 9.5 mg/dL (8.5-10.1); CREATININE 1.1 mg/dL (0.6-1.3); MAGNESIUM 2.3 mg/dL (1.8-2.4); PHOSPHORUS 3.8 mg/dL (2.5-4.9); POTASSIUM 4.6 mmol/L (3.5-5.1); TOTAL PROTEIN, SERUM 8.2 g/dL (6.4-8.2)
== END 2022-12-25 23:59 | disposition home or self-care (01) ==
LOC: MSC 10:34
PROVIDERS: ATTEND Internal Medicine
DX: I10 Essential (primary) hypertension (principal); N39.0 Urinary tract infection, site not specified; F32.A Depression, unspecified; R76.8 Other specified abnormal immunological findings in serum; R73.03 Prediabetes; S81.802D Unspecified open wound, left lower leg, subsequent encounter; M25.561 Pain in right knee; M25.571 Pain in right ankle and joints of right foot; R80.9 Proteinuria, unspecified; Z91.81 History of falling; Z79.899 Other long term (current) drug therapy; Z98.890 Other specified postprocedural states
CPT/HCPCS: 80061; 83735; 83036; 84100; 85652; 36415; 84439; 82746; 84443; 82607; 80053; 86140; 82306; G0463

== ENCOUNTER → 2022-12-26 | Outpatient (CLI) | payer MEDICARE, OTHER | END | disposition home or self-care (01) | LOC: MSC 15:15 | PROVIDERS: ATTEND Internal Medicine | DX: I10 Essential (primary) hypertension (principal); N39.0 Urinary tract infection, site not specified; F32.A Depression, unspecified; E55.9 Vitamin D deficiency, unspecified; R76.8 Other specified abnormal immunological findings in serum; R73.03 Prediabetes; R80.9 Proteinuria, unspecified; S81.802D Unspecified open wound, left lower leg, subsequent encounter; M25.561 Pain in right knee; M25.571 Pain in right ankle and joints of right foot ==

== ENCOUNTER 2023-01-15 09:59 | Outpatient (CLI) | payer MEDICARE, OTHER ==
[2023-01-15] MEDS ORDERED: UREA 10% -AHA 4% CREAM 57 GM TUBE ONE (10:19)
[2023-01-15] MEDS ORDERED: CLOTRIMAZOLE 1% 15 GM TUBE TP ONE (10:20)
== END 2023-01-15 23:59 | disposition home health service (06) ==
LOC: WOU 09:59
PROVIDERS: ATTEND Podiatrist Foot & Ankle Surgery
DX: I87.312 Chronic venous hypertension (idiopathic) with ulcer of left lower extremity (principal); L97.322 Non-pressure chronic ulcer of left ankle with fat layer exposed; L97.528 Non-pressure chronic ulcer of other part of left foot with other specified severity; L84 Corns and callosities; M79.672 Pain in left foot; M79.671 Pain in right foot; B35.1 Tinea unguium; R60.0 Localized edema
CPT/HCPCS: 11042; A6210; A6207

== ENCOUNTER 2023-02-01 10:09 | Outpatient (CLI) | payer MEDICARE, OTHER | END 2023-02-01 23:59 | disposition home health service (06) | LOC: WOU 10:09 | PROVIDERS: ATTEND Podiatrist Foot & Ankle Surgery | DX: I87.312 Chronic venous hypertension (idiopathic) with ulcer of left lower extremity (principal); L97.322 Non-pressure chronic ulcer of left ankle with fat layer exposed; L84 Corns and callosities; R60.0 Localized edema; M79.672 Pain in left foot; M79.671 Pain in right foot; B35.1 Tinea unguium | CPT/HCPCS: 17250; A6454 ==

== ENCOUNTER 2023-02-15 12:52 | Outpatient (CLI) | payer MEDICARE, OTHER | END 2023-02-15 23:59 | disposition home health service (06) | LOC: WOU 12:52 | PROVIDERS: ATTEND Podiatrist Foot & Ankle Surgery | DX: L84 Corns and callosities (principal); R60.0 Localized edema; B35.1 Tinea unguium; M25.572 Pain in left ankle and joints of left foot; M79.672 Pain in left foot; M79.671 Pain in right foot | CPT/HCPCS: G0463 ==

== ENCOUNTER 2023-09-17 09:21 | Outpatient (CLI) | payer MEDICARE, OTHER ==
[~2023-09-17 09:21] MED LIST changes: +LIDOCAINE SOLN 4% 50 ML BOTTLE ONE
[2023-09-17] MEDS ORDERED: SILVER SULFADIAZINE CREAM 25 GM TUBE ONE (09:27)
[2023-09-17] MEDS ORDERED: CLOTRIMAZOLE 1% 15 GM TUBE TP ONE (09:27)
== END 2023-09-17 23:59 | disposition home health service (06) ==
LOC: WOU 09:21
PROVIDERS: ATTEND Podiatrist Foot & Ankle Surgery
DX: I87.332 Chronic venous hypertension (idiopathic) with ulcer and inflammation of left lower extremity (principal); I87.2 Venous insufficiency (chronic) (peripheral); L97.822 Non-pressure chronic ulcer of other part of left lower leg with fat layer exposed; B35.1 Tinea unguium; R60.0 Localized edema; Z79.02 Long term (current) use of antithrombotics/antiplatelets
CPT/HCPCS: 11042; A6454

== ENCOUNTER 2024-01-30 17:55 | Inpatient (IN) | payer MEDICARE, OTHER ==
[~2024-01-30] VITALS: Ht 154.9 cm; Wt 50.8 kg
[~2024-01-30 17:55] MED LIST changes: -LIDOCAINE SOLN 4% 50 ML BOTTLE ONE
[2024-01-30] MEDS: IV NS 0.9% 500 ML BAG IV ONE (18:47)
[2024-01-30] MEDS: ONDANSETRON HCL/PF 4 MG/2 ML VIAL IVP ONE (18:48)
[2024-01-30 18:51] LABS: BILIRUBIN,URINE Negative (NEGATIVE); BLOOD, URINE Moderate Ery/uL (NEGATIVE); COLOR,URINE YELLOW (YELLOW); KETONES,URINE Negative (NEGATIVE); LEUKOCYTE ESTERASE ,URINE Moderate (NEGATIVE); NITRITE, URINE Negative (NEGATIVE); PROTEIN,URINE Negative (NEGATIVE); UGLUCOSE Negative (NEGATIVE); UROBILINOGEN,URINE 0.2 EU/dL (0.2)
[2024-01-30] MEDS ORDERED: METO25TA20 PO (18:51)
[2024-01-30 18:53] LABS: BASOPHILS % (AUTO) 0.5 % (0.0-2.0); EOSINOPHILS # (AUTO) 0.2 K/uL (0.0-0.7); HEMATOCRIT 38 % (33-45); HEMOGLOBIN 12.8 g/dL (11.5-14.8); LYMPHOCYTES # (AUTO) 1.6 K/uL (0.8-4.8); LYMPHOCYTES % (AUTO) 20.6 % (20.0-44.0); MEAN CORPUSCULAR HEMOGLOBIN 30 PG (26.0-33.0); MEAN CORPUSCULAR HGB CONC 33 g/dl (31.0-36.0); MEAN CORPUSCULAR VOLUME 90 fL (82-100); MONOCYTES # (AUTO) 0.6 K/uL (0.1-1.30); MONOCYTES % (AUTO) 7.3 % (2.0-12.0); NEUTROPHILS # (AUTO) 5.3 K/uL (1.8-8.9); NEUTROPHILS % (AUTO) 69.6 % (43.0-81.0); PLATELET COUNT (AUTO) 256 K/uL (150-450); RED BLOOD CELL COUNT(AUTO) 4.26 MIL/uL (4.0-5.2); RED CELL DISTRIBUTION WIDTH 15.4 % (11.5-15.0); WHITE BLOOD COUNT (AUTO) 7.7 K/uL (4.3-11.0)
[2024-01-30 19:00] LABS: APPEARANCE,URINE SLIGHTLY CLOUDY (CLEAR)
[2024-01-30 19:02] LABS: AMPHETAMINE, URINE NEGATIVE (NEGATIVE); BARBITURATE, URINE NEGATIVE (NEGATIVE); BENZODIAZEPINE, URINE NEGATIVE (NEGATIVE); CANNABINOID, URINE NEGATIVE (NEGATIVE); COCCAINE, URINE NEGATIVE (NEGATIVE); OPIATE, URINE NEGATIVE (NEGATIVE); PHENCYCLIDINE SCREEN,URINE NEGATIVE (NEGATIVE)
[2024-01-30 19:03] LABS: CALCIUM, SERUM 9.1 mg/dL (8.5-10.1); CARBON DIOXIDE 27 mmol/L (21-32); CHLORIDE 104 mmol/L (98-107); CREATININE 0.7 mg/dL (0.6-1.3); GLUCOSE 133 mg/dL (74-106); POTASSIUM 3.7 mmol/L (3.5-5.1); SODIUM SERUM 137 mmol/L (136-145); UREA NITROGEN, BLOOD 21 mg/dL (7-18)
[2024-01-30 19:09] LABS: ALANINE AMINOTRANSFERASE 20 U/L (12-78); ALBUMIN 3.7 g/dL (3.4-5.0); ALKALINE PHOSPHATASE 99 U/L (46-116); ASPARTATE AMINOTRANSFERASE 20 U/L (15-37); BILIRUBIN,DIRECT 0.2 mg/dL (0.0-0.2); BILIRUBIN,TOTAL 1.1 mg/dL (0.2-1.0); TOTAL PROTEIN, SERUM 8.2 g/dL (6.4-8.2)
[2024-01-30 19:27] LABS: INR 0.95 (0.91-1.10); PARTIAL THROMBOPLASTIN TIME 24.3 SEC (24.3-34.3); PROTHROMBIN TIME 9.8 SECS (9.2-11.1)
[2024-01-30 19:31] LABS: ALCOHOL, BLOOD < 3 mg/dL (0-10)
[2024-01-30 20:17] LABS: RBC,URINE 5 /HPF (0-2); WBC,URINE 51-80 /HPF (0-3)
[2024-01-30 20:18] LABS: ADD URINE CULTURE YES; BACTERIA,URINE Few /HPF (None Seen); SQUAMOUS EPITHELIAL CELL,UR Few /HPF (None Seen)
[2024-01-30] MEDS: MECLIZINE HCL 12.5 MG TABLET PO ONE (20:33)
[2024-01-30] MEDS: CEFTRIAXONE 1GM BAG (ER ONLY) 50 ML IV ONE (21:23)
[2024-01-30] MEDS ORDERED: Z GUARD REMEDY 4 OZ OINT TP PRN (21:30)
[2024-01-30] MEDS ORDERED: ACETAMINOPHEN 325 MG TABLET PO PRN (21:30)
[2024-01-30] MEDS ORDERED: MAGNESIUM HYDROXIDE 30 ML UDC PO PRN (21:30)
[2024-01-30] MEDS ORDERED: MAG HYDROX/AL HYDROX/SIMETH 30 ML UDC PO PRN (21:30)
[2024-01-30] MEDS ORDERED: ZOLPIDEM TARTRATE 5 MG TABLET PO PRN (21:30)
[2024-01-30 23:00] VITALS: BP_SYST 179; BP_SYST 195; BP_SYST 201; BP_DIAS 61; BP_DIAS 74; BP_DIAS 80; TEMP 98; O2SAT 98
[2024-01-30] MEDS: IV NS 0.9% 1,000 ML IV PRN (23:25)
[2024-01-30] MEDS: ONDANSETRON HCL/PF 4 MG/2 ML VIAL IVP PRN (23:29)
[2024-01-31] MEDS: METOPROLOL TARTRATE 25 MG TABLET PO SCH (00:01)
[2024-01-31] MEDS ORDERED: DEXTROSE 50%-WATER 50 ML DISP.SYRIN IV PRN (01:00)
[2024-01-31 04:00] VITALS: BP 153/72; TEMP 98.2; O2SAT 97
[2024-01-31] MEDS: INSULIN REGULAR, HUMAN 100 UNIT/ML 3 ML VIAL SQ PRN (06:37)
[2024-01-31] MEDS: BLOOD SUGAR DIAGNOSTIC 1 EACH STRIP IN SCH (06:37)
[2024-01-31 06:44] LABS: BASOPHILS % (AUTO) 0.5 % (0.0-2.0); EOSINOPHILS # (AUTO) 0.3 K/uL (0.0-0.7); EOSINOPHILS % (AUTO) 4.5 % (0.0-6.0); HEMATOCRIT 35 % (33-45); HEMOGLOBIN 12.1 g/dL (11.5-14.8); LYMPHOCYTES # (AUTO) 1.5 K/uL (0.8-4.8); LYMPHOCYTES % (AUTO) 22.9 % (20.0-44.0); MEAN CORPUSCULAR HEMOGLOBIN 31 PG (26.0-33.0); MEAN CORPUSCULAR HGB CONC 35 g/dl (31.0-36.0); MEAN CORPUSCULAR VOLUME 90 fL (82-100); MONOCYTES # (AUTO) 0.5 K/uL (0.1-1.30); MONOCYTES % (AUTO) 7.4 % (2.0-12.0); NEUTROPHILS # (AUTO) 4.3 K/uL (1.8-8.9); NEUTROPHILS % (AUTO) 64.7 % (43.0-81.0); PLATELET COUNT (AUTO) 238 K/uL (150-450); RED BLOOD CELL COUNT(AUTO) 3.87 MIL/uL (4.0-5.2); RED CELL DISTRIBUTION WIDTH 15.1 % (11.5-15.0); WHITE BLOOD COUNT (AUTO) 6.6 K/uL (4.3-11.0)
[2024-01-31 07:08] LABS: CREATININE 0.7 mg/dL (0.6-1.3); PHOSPHORUS 2.6 mg/dL (2.5-4.9); POTASSIUM 4.1 mmol/L (3.5-5.1)
[2024-01-31] MEDS ORDERED: POTASSIUM CHLORIDE 10 MEQ/50 ML PREMIXED IVPB FOR PERIPHERAL LINE IV SCH (08:00)
[2024-01-31 08:16] VITALS: BP 146/84; TEMP 98.3; O2SAT 98
[2024-01-31] MEDS ORDERED: METOPROLOL TARTRATE 25 MG TABLET PO SCH (09:00)
[2024-01-31 16:26] VITALS: BP 133/68; TEMP 97.7; O2SAT 97
[2024-01-31 20:00] VITALS: BP 120/44; TEMP 97.9; O2SAT 97
[2024-01-31] MEDS: CEFTRIAXONE 1 G in IV D5W 50 ML IV SCH (21:03)
[2024-02-01 08:00] VITALS: BP 155/57; TEMP 98.1; O2SAT 98
[2024-02-01 08:30] VITALS: BP 180/75
[2024-02-01 08:33] VITALS: BP 168/51
[2024-02-01 08:36] VITALS: BP 186/76
[2024-02-01] MEDS ORDERED: LEVO500T90 PO (09:35)
== END 2024-02-01 12:00 | disposition home health service (06) | DRG 690 ==
LOC: ER 18:01 → TELE 21:14 → MED 22:43
PROVIDERS: ADMIT Nurse Practitioner Acute Care; ATTEND Internal Medicine
DX: N39.0 Urinary tract infection, site not specified (principal); I10 Essential (primary) hypertension; E11.9 Type 2 diabetes mellitus without complications; E86.0 Dehydration; Z87.440 Personal history of urinary (tract) infections; Z88.6 Allergy status to analgesic agent; Z88.0 Allergy status to penicillin; Z79.899 Other long term (current) drug therapy; B96.89 Other specified bacterial agents as the cause of diseases classified elsewhere
CPT/HCPCS: 36415; 70450-TC; 71045-TC; 80048-TC; 80076-TC; 81001; 82962-TC; 83735-TC; 84100-TC; 84443-TC; 84484-TC; 85025-TC; 85730-TC; 87040-TC; 87086-TC; 97112-TC; 97116-TC; 97530-TC; A4223; A6403; G0378; G0480; J0696; J1815; J2405; J7030; J7040; J7060; J8597

== ENCOUNTER 2024-02-14 08:40 | Outpatient (CLI) | payer MEDICARE, OTHER ==
[~2024-02-14 08:40] MED LIST changes: -CIPR-262 PO; +LEVO500T90 PO; -MECL-182 PO; +METO25TA20 PO; -ONDA4TAB5 PO; -SULF1TAB48 PO
[2024-02-14] MEDS ORDERED: LIDOCAINE SOLN 4% 50 ML BOTTLE ONE (08:45)
== END 2024-02-14 23:59 | disposition home health service (06) ==
LOC: WOU 08:40
PROVIDERS: ATTEND Podiatrist Foot & Ankle Surgery
DX: I87.332 Chronic venous hypertension (idiopathic) with ulcer and inflammation of left lower extremity (principal); L97.822 Non-pressure chronic ulcer of other part of left lower leg with fat layer exposed; I87.2 Venous insufficiency (chronic) (peripheral); B35.1 Tinea unguium; R60.0 Localized edema; L84 Corns and callosities; M79.672 Pain in left foot; M79.671 Pain in right foot; Z79.02 Long term (current) use of antithrombotics/antiplatelets
CPT/HCPCS: 11042; A6454; A4649